=== PATIENT | male | born 1965 | race Caucasian/White ===

== ENCOUNTER 2021-03-10 13:59 | Emergency (ER) | payer OTHER, SELFPAY ==
[2021-03-10 14:22] VITALS: BP 185/104; PULSE 81; RESP 16; TEMP 36.6; O2SAT 98; BMI 29.5
[2021-03-10 15:28] LABS: Glucose Urine UA Norm (Normal); Ketones Urine Negative (Negative); Nitrate Urine Negative (Negative); Protein Urine Neg (Negative); Specific Gravity, Urine 1.005 (1.005-1.030); Urine Appearance Clear (CLEAR); Urine Color Yellow (Yellow); pH Urine 6.5 (5-7)
[2021-03-10 15:29] LABS: Add Urine Culture? No; Add Urine Microscopic? YES; Bilirubin Urine Neg (Negative); Blood Urine 2+ (Negative); Leukocyte Esterase Urine Negative (Negative); RBC Urine 0-4 /hpf (0-2); Urobilinogen Urine Norm (Negative)
--- NOTE | 2021-03-10 15:36 | ECG_ITS ---
[facility] Test Date: 2021-03-10 Pat Name: Hollis Turpin Department: Room: Gender: Male Surveillance Director: : 1965 Requested By: Mariela Love Order Number: [id number] Donna MD: Remington Puentes M.D. Measurements Intervals [place] Rate: 63 P: 38 IA: 205 QRS: 7 QRSD: 99 T: 21 QT: 410 QTc: 421 Interpretive Statements SINUS RHYTHM No previous ECG available for comparison Electronically Signed On 03-11-2021 0:31:58 CDT by Remington Puentes M.D. [id number]
--- NOTE | 2021-03-10 15:36 | CTR_ITS ---
PROCEDURE INFORMATION: Exam: CT Abdomen And Pelvis Without Contrast Exam date and time: 03/10/2021 3:36 PM Age: 56 years old Clinical indication: Abdominal pain; Localized; Right; Prior surgery; Surgery type: Hernia; Additional info: Midline lower abdominal pain 2-3 wks; Acute R pain today TECHNIQUE: Imaging protocol: Computed tomography of the abdomen and pelvis without contrast. Radiation optimization: All CT scans at this facility use at least one of these dose optimization techniques: automated exposure control; mA and/or kV adjustment per patient size (includes targeted exams where dose is matched to clinical indication); or iterative reconstruction. COMPARISON: CT Abdomen/Pelvis Renal [id number] 04/13/2019 8:05 AM COMPARISON MORE: CT Abdomen/Pelvis Renal [id number] 05/06/2014 10:24:22 AM RADIATION DOSE METRICS: Total DLP (mGy-cm): 1820.92 FINDINGS: Lungs: Circumscribed 10 mm subpleural left upper lobe pulmonary nodule on axial series 2, image 19. No change in the nodule since at least 2013. No further dedicated follow-up recommended. Mediastinal space: Mild hiatal hernia. Liver: Normal. No mass. Gallbladder and bile ducts: Normal. No calcified stones. No ductal dilation. Pancreas: Normal. No ductal dilation. Spleen: Normal. No splenomegaly. Adrenal glands: Normal. No mass. Kidneys and ureters: Mildly atrophic renal parenchyma. Clustered simple renal sinus cysts bilaterally. Right proximal collecting system moderate severity hydroureteronephrosis secondary to 5 mm calcified mid ureteral stone. Additional nonobstructing right kidney upper pole and lower pole stones. Stomach and bowel: Unremarkable. No obstruction. No mucosal thickening. Appendix: No evidence of appendicitis. Intraperitoneal space: Unremarkable. No free air. No significant fluid collection. Vasculature: Unremarkable. No abdominal aortic aneurysm. Lymph nodes: Unremarkable. No enlarged lymph nodes. Urinary bladder: Unremarkable as visualized. Reproductive: Very mild prostate gland enlargement. Bones/joints: Unremarkable. No acute fracture. Soft tissues: Fat containing left inguinal hernia. CT/CT kidney stone [id number] IMPRESSION: Right collecting system obstructive uropathy secondary to ureterolithiasis. COMMENTS: Consistent with the [employer]'s Incidental Findings Committee white paper (J Am Luan Radiol 2018): Any incidental renal lesion less than 1 cm or classified as too small to characterize, or any incidental cystic renal lesion characterized as simple-appearing, is likely benign. No follow-up imaging is recommended for these lesions per consensus recommendations based on imaging criteria. Radiation Dose CTDIVOL = (mGy): DLP = 1820.92 (mGy-cm)
--- NOTE | 2021-03-10 15:39 | ED_ITS ---
HPI - Abdominal Pain General: Chief Complaint: General Medical Stated Complaint: R flank pain, face tingling and numbness Time Seen by Provider: 03/10/21 15:05 Source: patient Mode of arrival: ambulatory Limitations: no limitations History of Present Illness: HPI narrative: Patient is a 56-year-old male who presents to ED today with a few different complaints. Patient tells me he has had pain to his lower midline abdomen for 2 to 3 weeks. He describes his pain as mild and usually does not bother him. He states a few hours ago he began noticing very acute onset right sided abdominal and lateral abdomen pain. He states he does have a history of kidney and ureter stones and states his pain felt very similar. He is not having any complaints of hematuria, difficulty sta rting a stream, or urinary hesitancy. He does not complain of nausea, vomiting, changes in bowel movements. No fevers. He states on the car ride to the emergency department he had an episode of numbness/tingling to the right side of his face and right arm. He noticed upon check-in that his blood pressure was elevated at 185/104. He states he does not routinely check his blood pressure but has been told previously he does have hypertension-this is untreated. Patient upon arrival states that the numbness and tingling has completely resolved. He does not/did not have any accompanying chest pains or SOB with episode. MD elicited complaint: abdominal pain Pertinent past history: other (previous R inguinal hernia repair; hx of kidney stones) Pain Consistency: constant Migration to: no migration Exacerbating factors: nothing Relieving factors: nothing Associated Symptoms: Reports no associated symptoms; Denies change in stool character, chills, diarrhea, dysuria, fever(s), hematuria, nausea, syncope and vomiting Review of Systems Const: Denies: fever(s), chills, body aches, fatigue or malaise Eyes: Denies: change in vision or blurry vision Card: Denies: chest pain, palpitations, irregular heart rhythm, edema, lightheadedness, syncope or pre-syncope Resp: Denies: dyspnea GI: Reports: abdominal pain; Denies: nausea, vomiting, diarrhea or change in stool character : Reports: flank pain; Denies: difficulty urinating, dysuria, urinary frequency, urinary urgency, urinary hesitancy, urinary dribbling, difficulty starting urination, change in urine stream, oliguria, urinary incontinence, hematuria or testicular pain Musc: Reports: back pain (R flank); Denies: neck pain, extremity pain, extremity swelling, joint pain or joint swelling Skin/Breast: Denies: rash Neuro: Reports: sensory changes (reports tingling to R arm/face that has resolved ); Denies: headache(s), weakness in extremities, lack of coordination, difficulty walking, dizziness, vertigo, confusion, Slurred speech present or difficulty communicating thoughts PFSH ED PFSH: Family History (Updated 10/06/20 @ 11:15 by Rhona Weems, RN) Mother Cancer Breast Father CAD (coronary artery disease) Social History (Updated 10/06/20 @ 11:15 by Rhona Weems RN) Smoking and tobacco status: never smoked Alcohol intake: never Marital status: Current occupational status: employed Physical Exam Const: COMMON NORMALS: no acute distress, average body habitus, patient oriented x3, no limitations, healthy appearing, alert and well nourished HENMT: COMMON NORMALS: normocephalic and atraumatic HEAD & SCALP: normocephalic and atraumatic Neck/C-Spine: COMMON NORMALS: full ROM, no lymphadenopathy, supple and no meningeal signs Chest: COMMONS NORMALS: normal inspection of the chest Resp: COMMON NORMALS: normal respiratory effort and clear to auscultation bilaterally AUSCULTATION: clear to auscultation bilaterally Cardio: COMMON NORMALS: regular rate and regular rhythm RATE: regular rate RHYTHM: regular rhythm GI: COMMON NORMALS: Normal to inspection, nondistended, normoactive bowel sounds present, Soft to palpation, No hepatosplenomegaly present and no masses INSPECTION: Yes normal to inspection PALPATION: Yes Soft to palpation, Yes Tenderness to palpation present (GI) (see below) and Yes No hepatosplenomegaly present OTHER: very mild midline lower abdominal pain-no masses/bulges; he does have what feels like a subcutaneous mass to L lower abdomen that he states he is aware of and calls it a fatty tumor ; he has mild pain to R flank wrapping around into lower abdomen : COMMON NORMALS: Yes no CVA tenderness BLADDER/KIDNEY EXAM: Yes no CVA tenderness Back/Pelvis: COMMON NORMALS: no CVA tenderness and thoracic and lumbar spine normal to inspection Extremity: COMMON NORMALS: normal to inspection, capillary refill normal and no calf tenderness Neuro: EZE COMA SCALE: document GCS findings Eze coma scale eye opening: Spontaneous Eze coma scale verbal response: Orientated Crucible coma scale motor response: Obey commands Eze coma scale total score: 15 COMMON NORMALS: patient oriented x3, CN's II-XII intact bilaterally, moves all extremities, no focal motor deficits, no sensory deficits noted and gait normal SENSORIUM/ORIENTATION: Yes alert MENINGEAL SIGNS: Yes no meningeal signs CRANIAL NERVES: Yes CN normal except as noted COORDINATION/BALANCE: [id number] test normal SPEECH: speech normal GAIT: Yes Normal gait present SENSORY EXAM: Yes other (normal sensory exam) MOTOR EXAM: 5/5 motor strength present throughout COORDINATION: [id number] test normal Skin: COMMON NORMALS: no rashes or lesions noted GENERAL SKIN EXAM: no rashes or lesions noted Course Vital Signs: Vital signs: Vital Signs Temperature 97.9 F 03/10/21 14:22 Pulse Rate 78 03/10/21 16:33 Respiratory Rate 18 03/10/21 16:33 Blood Pressure 151/84 03/10/21 16:33 Pulse Oximetry 98 03/10/21 16:33 MDM - Abdominal Pain MDM Narrative: Medical decision making narrative: Vitals are stable. Hypertension improved here w/o medications. Recommend BP log and followup with PCP for treatment options. He was found to have a 5mm R mid ureter stone. I have not had to give him anything for pain here. UA not infected. Remainder of labs are unremarkable. Will give pain/nausea meds and zofran as well as urine strainer and have him follow up with Dr. White. Return to ED precautions given. Lab Data: Labs: Lab Results 03/10/21 03/10/21 03/10/21 Range/Units 14:52 15:45 15:45 WBC 8.4 (4.0-10.0) 10^3/ uL RBC 4.70 (4.1-5.3) 10^6/u L Hgb 14.7 (11.7-16.6) g/dL Hct 42.4 (42.0-52.0) % MCV 90.2 (80-94) fL MCH 31.3 (28.0-34.0) pg MCHC 34.7 (30.0-36.0) g/dL RDW 12.3 (12.1-15.1) % Plt Count 173 (130-400) 10^3/c mm MPV 12.3 H (7.4-10.4) fL Neut % (Auto) 80.8 % Lymph % (Auto) 7.7 % [place] % (Auto) 10.7 % Eos % (Auto) 0.2 % Baso % (Auto) 0.4 % Neut # (Auto) 6.82 (1.8-7.7) 10^3/u L Lymph # (Auto) 0.7 L (0.8-4.8) 10^3/u L [place] # (Auto) 0.9 (0.2-0.9) 10^3/u L Eos # (Auto) 0.0 (0.0-0.8) 10^3/u L Baso # (Auto) 0.0 (0.0-0.1) 10^3/u L Nucleated RBC % (a uto) 0 % Nucleated RBCs # 0.0 /100WBC Sodium 141 (136-145) mmol/L Potassium 4.0 (3.5-5.1) mmol/L Chloride 106 (98-107) mmol/L Carbon Dioxide 25 (22-29) mmol/L Anion Gap 14.0 (5-19) BUN 16 (6-20) mg/dL Creatinine 1.0 (0.7-1.2) mg/dL GFR Calculation 77.3 L (90-130) mL/min Glucose 97 (65-115) mg/dL Calculated Osmolal ity 293 (285-295) mOsm/k g Calcium 8.7 (8.5-10.5) mg/dL Total Bilirubin 0.3 (0.15-1.2) mg/dL AST 21 (0-40) U/L ALT 19 (0-41) U/L Alkaline Phosphata se 84 (40-130) IU/L Troponin T Baselin e (0-15) ng/L Total Protein 6.6 (6.6-8.7) g/dL Albumin 4.4 (3.5-5.2) g/dL Globulin 2.2 (1.3-4.6) g/dL Urine Color Yellow (Yellow) Urine Appearance Clear (CLEAR) Urine pH 6.5 (5-7) Ur Specific Gravit y 1.005 (1.005-1.030) Urine Protein Neg (Negative) Urine Glucose (UA) Norm (Normal) Urine Ketones Negative (Negative) Urine Blood 2+ H (Negative) Urine Nitrate Negative (Negative) Urine Bilirubin Neg (Negative) Urine Urobilinogen Norm (Negative) mg/dL Ur Leukocyte Rose Marie ase Negative (Negative) Urine RBC 0-4 H (0-2) /hpf Urine WBC None (0-5) /hpf Ur Squamous Epith Cells None (0-5) /hpf Amorphous Sediment Not Reportable Urine Bacteria None (NONE) /hpf 03/10/21 Range/Units 15:45 WBC (4.0-10.0) 10^3/ uL RBC (4.1-5.3) 10^6/u L Hgb (11.7-16.6) g/dL Hct (42.0-52.0) % MCV (80-94) fL MCH (28.0-34.0) pg MCHC (30.0-36.0) g/dL RDW (12.1-15.1) % Plt Count (130-400) 10^3/c mm MPV (7.4-10.4) fL Neut % (Auto) % Lymph % (Auto) % [place] % (Auto) % Eos % (Auto) % Baso % (Auto) % Neut # (Auto) (1.8-7.7) 10^3/u L Lymph # (Auto) (0.8-4.8) 10^3/u L [place] # (Auto) (0.2-0.9) 10^3/u L Eos # (Auto) (0.0-0.8) 10^3/u L Baso # (Auto) (0.0-0.1) 10^3/u L Nucleated RBC % (a uto) % Nucleated RBCs # /100WBC Sodium (136-145) mmol/L Potassium (3.5-5.1) mmol/L Chloride (98-107) mmol/L Carbon Dioxide (22-29) mmol/L Anion Gap (5-19) BUN (6-20) mg/dL Creatinine (0.7-1.2) mg/dL GFR Calculation (90-130) mL/min Glucose (65-115) mg/dL Calculated Osmolal ity (285-295) mOsm/k g Calcium (8.5-10.5) mg/dL Total Bilirubin (0.15-1.2) mg/dL AST (0-40) U/L ALT (0-41) U/L Alkaline Phosphata se (40-130) IU/L Troponin T Baselin e 8 (0-15) ng/L Total Protein (6.6-8.7) g/dL Albumin (3.5-5.2) g/dL Globulin (1.3-4.6) g/dL Urine Color (Yellow) Urine Appearance (CLEAR) Urine pH (5-7) Ur Specific Gravit y (1.005-1.030) Urine Protein (Negative) Urine Glucose (UA) (Normal) Urine Ketones (Negative) Urine Blood (Negative) Urine Nitrate (Negative) Urine Bilirubin (Negative) Urine Urobilinogen (Negative) mg/dL Ur Leukocyte Rose Marie ase (Negative) Urine RBC (0-2) /hpf Urine WBC (0-5) /hpf Ur Squamous Epith Cells (0-5) /hpf Amorphous Sediment Urine Bacteria (NONE) /hpf Imaging Data ^: CT renal: Radiologist's impression: [address] [address] [address] Scan Report Signed Patient: Hollis Turpin Unit #: [id number] : 1965 Age/Sex: 56 / M ADM Date: 03/10/21 Loc: ER Room/Bed: Attending Dr: Ordering Provider/Ordering MD: Mariela Love Date of Service: 03/10/21 Procedure(s): CT kidney stone [id number] Accession Number(s): [id number] Report Number: [id number] PROCEDURE INFORMATION: Exam: CT Abdomen And Pelvis Without Contrast Exam date and time: 03/10/2021 3:36 PM Age: 56 years old Clinical indication: Abdominal pain; Localized; Right; Prior surgery; Surgery type: Hernia; Additional info: Midline lower abdominal pain 2-3 wks; Acute R pain today TECHNIQUE: Imaging protocol: Computed tomography of the abdomen and pelvis without contrast. Radiation optimization: All CT scans at this facility use at least one of these dose optimization techniques: automated exposure control; mA and/or kV adjustment per patient size (includes targeted exams where dose is matched to clinical indication); or iterative reconstruction. COMPARISON: CT Abdomen/Pelvis Renal [id number] 04/13/2019 8:05 AM COMPARISON MORE: CT Abdomen/Pelvis Renal [id number] 05/06/2014 10:24:22 AM RADIATION DOSE METRICS: Total DLP (mGy-cm): 1820.92 FINDINGS: Lungs: Circumscribed 10 mm subpleural left upper lobe pulmonary nodule on axial series 2, image 19. No change in the nodule since at least 2013. No further dedicated follow-up recommended. Mediastinal space: Mild hiatal hernia. Liver: Normal. No mass. Gallbladder and bile ducts: Normal. No calcified stones. No ductal dilation. Pancreas: Normal. No ductal dilation. Spleen: Normal. No splenomegaly. Adrenal glands: Normal. No mass. Kidneys and ureters: Mildly atrophic renal parenchyma. Clustered simple renal sinus cysts bilaterally. Right proximal collecting system moderate severity hydroureteronephrosis secondary to 5 mm calcified mid ureteral stone. Additional nonobstructing right kidney upper pole and lower pole stones. Stomach and bowel: Unremarkable. No obstruction. No mucosal thickening. Appendix: No evidence of appendicitis. Intraperitoneal space: Unremarkable. No free air. No significant fluid collection. Vasculature: Unremarkable. No abdominal aortic aneurysm. Lymph nodes: Unremarkable. No enlarged lymph nodes. Urinary bladder: Unremarkable as visualized. Reproductive: Very mild prostate gland enlargement. Bones/joints: Unremarkable. No acute fracture. Soft tissues: Fat containing left inguinal hernia. CT/CT kidney stone [id number] IMPRESSION: Right collecting system obstructive uropathy secondary to ureterolithiasis. COMMENTS: Consistent with the [employer]'s Incidental Findings Committee white paper (J Am Luan Radiol 2018): Any incidental renal lesion less than 1 cm or classified as too small to characterize, or any incidental cystic renal lesion characterized as simple-appearing, is likely benign. No follow-up imaging is recommended for these lesions per consensus recommendations based on imaging criteria. Radiation Dose CTDIVOL = (mGy): DLP = 1820.92 (mGy-cm) Dictated By: Sebas Kline Signed By: Sebas Kline Signed Date/Time: 03/10/211652 DD/ 51 EKG Data ^: EKG 1: EKG interpretation date: 03/10/21 EKG interpretation time: 16:02 Interpretation: Sinus rhythm Rate [address] elevation or depression changes noted Discharge Plan Discharge Patient Disposition: Home Clinical Impression: Calculus of right ureter Condition: Stable Prescriptions: New hydrocodone-acetaminophen 5-325 mg tablet 1 tab PO Q6H PRN (Reason: pain) Qty: 20 RF: 0 Zofran 4 mg tablet 4 mg PO Q6H PRN (Reason: nausea and vomiting) Qty: 14 RF: 0 Flomax 0.4 mg capsule 0.4 mg PO DAILY Qty: 10 RF: 0 Discharge Orders: Discharge ED (Routine); Ordered 03/10/21 Ordered By: Mariela Love Referrals: Femi White MD [Primary Care Provider] - Activity Restrictions/Additional Instructions: As we discussed you need to strain your urine. Save stone if you pass it. Please follow-up with Dr. White. Case management should contact you shortly to set you up with this appointment. You need to return to the emergency department for worsening or uncontrollable pain, repetitive episodes of vomiting, inability to urinate, fevers, or any other concerns you may have. As we discussed please keep a blood pressure log over the next 1 to 2 weeks and follow-up with primary care if it continually is elevated. Coding Level of Care Code ED Window Display Designer for Marcellus Fwd Exam Comprehensive
[2021-03-10 15:54] VITALS: BP 151/88; PULSE 78; RESP 18; O2SAT 98
[2021-03-10 15:54] LABS: Basophils % 0.4 %; Eosinophils % 0.2 %; Hematocrit 42.4 % (42.0-52.0); Hemoglobin 14.7 g/dL (11.7-16.6); Lymphocytes # 0.7 10^3/uL (0.8-4.8); Lymphocytes % 7.7 %; Mean Corpuscular HGB Conc 34.7 g/dL (30.0-36.0); Mean Corpuscular Hemoglobin 31.3 pg (28.0-34.0); Mean Corpuscular Volume 90.2 fL (80-94); Mean Platelet Volume 12.3 fL (7.4-10.4); Monocytes # 0.9 10^3/uL (0.2-0.9); Monocytes % 10.7 %; Neutrophils # 6.82 10^3/uL (1.8-7.7); Neutrophils % 80.8 %; Nucleated Red Blood Cells % 0 %; Platelet Count 173 10^3/cmm (130-400); Red Cell Distribution Width 12.3 % (12.1-15.1); White Blood Count 8.4 10^3/uL (4.0-10.0)
[2021-03-10] MEDS: sodium chloride 0.9% 1,000 ML 999 ML IV (15:55)
[2021-03-10 16:15] LABS: Alanine Aminotransferase 19 U/L (0-41); Albumin Level 4.4 g/dL (3.5-5.2); Alkaline Phosphatase 84 IU/L (40-130); Aspartate Amino Transferase 21 U/L (0-40); Blood Urea Nitrogen 16 mg/dL (6-20); Calcium 8.7 mg/dL (8.5-10.5); Carbon Dioxide 25 mmol/L (22-29); Chloride 106 mmol/L (98-107); Globulin 2.2 g/dL (1.3-4.6); Glomerular Filtration Rate 77.3 mL/min (90-130); Glucose 97 mg/dL (65-115); Osmolality Calculated 293 mOsm/kg (285-295); Sodium 141 mmol/L (136-145); Total Bilirubin 0.3 mg/dL (0.15-1.2); Total Protein 6.6 g/dL (6.6-8.7)
[2021-03-10 16:16] LABS: Troponin(5th) Baseline 8 ng/L (0-15)
[2021-03-10 16:33] VITALS: BP 151/84; PULSE 78; RESP 18; O2SAT 98
--- NOTE | 2021-03-11 10:52 | DCPLANNER ---
manager forms had message to schedule a follow up appointment for patient with Dr. White for ureter stone. manager forms called the office of Dr. White, spoke with Dalila, gave clinic patients information. manager forms was told that patients information would be printed and reviewed. Clinic will call patient with appointment information.
--- NOTE | 2021-03-13 14:48 | DCPLANNER ---
Patient had a follow up appointment with Dr. Duarte office, - appointment was cancelled.
== END 2021-03-10 17:25 | disposition home or self-care (01) ==
PROVIDERS: Emergency Provider Physician Assistant; PCP Urology
DX: N20.1 Calculus of ureter (principal); I10 Essential (primary) hypertension
CPT/HCPCS: 74176; 80053; 81001; 84484; 85025; 93005; 96360; 99284; J7030

== ENCOUNTER 2021-03-17 05:38 | Emergency (ER) | payer OTHER, SELFPAY ==
[2021-03-17 06:01] VITALS: BP 172/112; PULSE 71; RESP 20; TEMP 36.8; O2SAT 98; BMI 29.5
--- NOTE | 2021-03-17 06:11 | XRR_ITS ---
PROCEDURE INFORMATION: Exam: XR Abdomen Exam date and time: 03/17/2021 6:11 AM Age: 56 years old Clinical indication: Abdominal pain; Additional info: Renal stone TECHNIQUE: Imaging protocol: XR of the abdomen. Views: Frontal supine view of the abdomen. 1 View. COMPARISON: CT kidney stone [id number] 03/10/2021 3:52 PM FINDINGS: Gastrointestinal tract: bowel gas pattern is nonspecific. Air filled large bowel including distal rectal gas. Scattered loops of air filled small bowel none of which are dilated. Large amount of stool throughout the large bowel. Organs: 3 mm calculus overlies the midpole versus lower pole of the right kidney. Bones/joints: Unremarkable. XR/XR KUB [id number] IMPRESSION: 1. Bowel gas pattern is nonspecific. Air filled large bowel including distal rectal gas. Scattered loops of air filled small bowel none of which are dilated. 2. Large amount of stool throughout the large bowel.
[2021-03-17 06:18] VITALS: RESP 18
[2021-03-17] MEDS: morphine 4 mg/mL SDV 1 mL 8 MG IVP (06:18)
[2021-03-17] MEDS: ondansetron 2 mg/ML SDV 2 mL 4 MG IVP (06:19)
[2021-03-17 06:22] LABS: Basophils % 0.3 %; Eosinophils % 0.2 %; Hematocrit 41.6 % (42.0-52.0); Hemoglobin 14.3 g/dL (11.7-16.6); Lymphocytes # 0.6 10^3/uL (0.8-4.8); Lymphocytes % 9.5 %; Mean Corpuscular HGB Conc 34.4 g/dL (30.0-36.0); Mean Corpuscular Hemoglobin 30.7 pg (28.0-34.0); Mean Corpuscular Volume 89.3 fL (80-94); Mean Platelet Volume 12.2 fL (7.4-10.4); Monocytes # 0.6 10^3/uL (0.2-0.9); Monocytes % 9.2 %; Neutrophils # 5.07 10^3/uL (1.8-7.7); Neutrophils % 80.6 %; Nucleated Red Blood Cells % 0 %; Platelet Count 183 10^3/cmm (130-400); Red Blood Count 4.66 10^6/uL (4.1-5.3); Red Cell Distribution Width 12.2 % (12.1-15.1); White Blood Count 6.3 10^3/uL (4.0-10.0)
--- NOTE | 2021-03-17 06:22 | ED_ITS ---
HPI - Abdominal Pain General: Chief Complaint: Abdominal Pain Stated Complaint: kidney stone Time Seen by Provider: 03/17/21 05:57 History of Present Illness: HPI narrative: 56-year-old male presents emergency room with complaints of right flank pain is worsening. He has a known right renal ureteral stone with about and CT 1 wk ago. He seems to be doing well with medications he was sent home on for pain and tamsulosin last night he mowed his lawn and this morning the pain is become uncontrollable. He has had multiple kidney stones in the past as well. MD elicited complaint: abdominal pain and flank pain Pertinent past history: kidney stones Onset (ago): week(s) Pain Consistency: constant Location: R flank Severity: severe Quality: stabbing Radiation: suprapubic Exacerbating factors: nothing Relieving factors: nothing Associated Symptoms: Reports dysuria, hematuria, nausea, poor appetite and vomiting; Denies anorexia, belching, bloating, change in bowel habits, change in stool character, chills, coffee ground emesis, constipation, GI cramping, diarrhea, dyspepsia, excessive flatus, fever(s), heartburn, hematochezia, hematemesis, fecal incontinence, loose stools, melena and syncope Treatments prior to arrival: prescription analgesics Review of Systems Const: Denies: fever(s) or chills ENMT: Denies: throat pain, ear or mastoid pain, nasal discharge or nasal congestion Card: Denies: syncope Resp: Denies: dyspnea, productive cough or non-productive cough GI: Reports: nausea and vomiting; Denies: hematemesis, coffee ground emesis, heartburn, diarrhea, constipation, bloating, GI cramping, belching, excessive flatus, fecal incontinence, change in bowel habits, change in stool character, hematochezia or melena : Reports: dysuria and hematuria Skin/Breast: Denies: rash or pruritus PFSH ED PFSH: Family History Mother Cancer Breast Father CAD (coronary artery disease) Social History Smoking and tobacco status: never smoked Alcohol intake: never Marital status: Current occupational status: employed Physical Exam Const: COMMON NORMALS: no acute distress GENERAL APPEARANCE: cooperative and comfortable ORIENTATION/CONSCIOUSNESS: Yes awake, Yes oriented to person, Yes oriented to place and Yes oriented to time HENMT: COMMON NORMALS: normocephalic, atraumatic and hearing grossly normal bilaterally HEAD & SCALP: normocephalic and atraumatic Neck/C-Spine: COMMON NORMALS: no JVD Resp: COMMON NORMALS: normal respiratory effort, No retractions, No use of accessory muscles and clear to auscultation bilaterally AUSCULTATION: clear to auscultation bilaterally Cardio: COMMON NORMALS: no JVD, regular rate, regular rhythm and No murmurs present (Cardio) RATE: regular rate RHYTHM: regular rhythm GI: COMMON NORMALS: Soft to palpation and No hepatosplenomegaly present AUSCULTATION: Yes normoactive bowel sounds PALPATION: Yes Soft to palpation, No Tenderness to palpation present (GI), No Guarding due to palpation present (GI) and Yes No hepatosplenomegaly present Extremity: COMMON NORMALS: normal to inspection, capillary refill normal, no clubbing, cyanosis or edema, no calf tenderness and no pedal edema Neuro: SENSORIUM/ORIENTATION: Yes oriented to person, Yes oriented to place and Yes oriented to time Skin: COMMON NORMALS: no rashes or lesions noted GENERAL SKIN EXAM: no rashes or lesions noted Course Vital Signs: Vital signs: Vital Signs Temperature 98.2 F 03/17/21 06:01 Pulse Rate 70 03/17/21 06:40 Respiratory Rate 18 03/17/21 06:45 Blood Pressure 168/134 03/17/21 06:40 Pulse Oximetry 96 03/17/21 06:40 MDM - Abdominal Pain MDM Narrative: Medical decision making narrative: Pain control improved. On the KUB can see the stone just outside the bladder it appears to be at the UVJ. We will discharge him home change him to Percocet 7.5/325 and Phenergan. He was not be having his pain or his nausea and vomiting adequately controlled with the previous medications. In addition to that his blood pressure is quite high. So it surely his pain however the blood pressure did not improve after we get his pain under control. His daughter is a nurse and has been monitoring at home and and reported blood pressures in the 140s over 100 range. Probably does need better blood pressure control. We will start him off on amlodipine 2.5 mg daily. This should be checked up with a primary care doctor in outpatient basis. Likely will need to be adjusted. Lab Data: Labs: Lab Results 03/17/21 03/17/21 Range/Units 06:10 06:10 WBC 6.3 (4.0-10.0) 10^3/ uL RBC 4.66 (4.1-5.3) 10^6/u L Hgb 14.3 (11.7-16.6) g/dL Hct 41.6 L (42.0-52.0) % MCV 89.3 (80-94) fL MCH 30.7 (28.0-34.0) pg MCHC 34.4 (30.0-36.0) g/dL RDW 12.2 (12.1-15.1) % Plt Count 183 (130-400) 10^3/c mm MPV 12.2 H (7.4-10.4) fL Neut % (Auto) 80.6 % Lymph % (Auto) 9.5 % [place] % (Auto) 9.2 % Eos % (Auto) 0.2 % Baso % (Auto) 0.3 % Neut # (Auto) 5.07 (1.8-7.7) 10^3/u L Lymph # (Auto) 0.6 L (0.8-4.8) 10^3/u L [place] # (Auto) 0.6 (0.2-0.9) 10^3/u L Eos # (Auto) 0.0 (0.0-0.8) 10^3/u L Baso # (Auto) 0.0 (0.0-0.1) 10^3/u L Nucleated RBC % (a uto) 0 % Nucleated RBCs # 0.0 /100WBC Sodium 142 (136-145) mmol/L Potassium 4.1 (3.5-5.1) mmol/L Chloride 108 H (98-107) mmol/L Carbon Dioxide 23 (22-29) mmol/L Anion Gap 15.1 (5-19) BUN 18 (6-20) mg/dL Creatinine 1.1 (0.7-1.2) mg/dL GFR Calculation 69.2 L (90-130) mL/min Glucose 113 (65-115) mg/dL Calculated Osmolal ity 297 H (285-295) mOsm/k g Calcium 8.8 (8.5-10.5) mg/dL Discharge Plan Discharge Patient Disposition: Home Clinical Impression: Calculus of right ureter, Benign essential HTN Condition: Stable Prescriptions: New Percocet 7.5-325 mg tablet 1 tab PO Q6H PRN (Reason: pain) Qty: 20 RF: 0 promethazine 25 mg tablet 25 mg PO Q6H PRN (Reason: nausea and vomiting) Qty: 20 RF: 0 amlodipine 5 mg tablet 2.5 mg PO DAILY Qty: 30 RF: 0 Discontinued hydrocodone-acetaminophen 5-325 mg tablet 1 tab PO Q6H PRN (Reason: pain) Qty: 20 RF: 0 ondansetron HCl [Zofran] 4 mg tablet 4 mg PO Q6H PRN (Reason: nausea and vomiting) Qty: 14 RF: 0 No Action Flomax 0.4 mg capsule 0.4 mg PO DAILY Qty: 10 RF: 0 Discharge Orders: Discharge ED (Routine); Ordered 03/17/21 Ordered By: Will Wharton Referrals: Femi White MD [Primary Care Provider] - Discharge Diet: Usual diet Discharge Activity: Increase activity as tolerated Patient Instructions: Opioid Safety Activity Restrictions/Additional Instructions: Follow-up with Dr. White. Coding Level of Care Code ED Load Out Worker for Radhag Fwd Exam Comprehensive
--- NOTE | 2021-03-17 06:35 | PC.NURSE ---
REports pain and nausea is getting better now. Appears less uncomfortable. at bedside. Repositioned for comfort. VSS.
[2021-03-17 06:40] VITALS: BP 168/134; PULSE 70; RESP 18; O2SAT 96
[2021-03-17 06:42] LABS: Anion Gap 15.1 (5-19); Blood Urea Nitrogen 18 mg/dL (6-20); Calcium 8.8 mg/dL (8.5-10.5); Carbon Dioxide 23 mmol/L (22-29); Chloride 108 mmol/L (98-107); Glomerular Filtration Rate 69.2 mL/min (90-130); Glucose 113 mg/dL (65-115); Osmolality Calculated 297 mOsm/kg (285-295); Potassium 4.1 mmol/L (3.5-5.1); Sodium 142 mmol/L (136-145)
[2021-03-17 06:45] VITALS: RESP 18
[2021-03-17] MEDS: HYDROmorphone 1 mg/mL INJ 1 mL 0.5 MG IVP (06:45)
[2021-03-17 07:21] VITALS: BP 168/134; PULSE 78; O2SAT 99
== END 2021-03-17 07:23 | disposition home or self-care (01) ==
PROVIDERS: Emergency Provider Family Medicine; PCP Urology
DX: N20.1 Calculus of ureter (principal); I10 Essential (primary) hypertension
CPT/HCPCS: 74018; 80048; 85025; 96374; 96375; 99283; J1170; J2270; J2405

== ENCOUNTER 2021-03-17 06:00 | Outpatient (CLI) | payer SELFPAY | END 2021-03-17 06:01 | disposition home or self-care (01) | LOC: RAD 01-07 14:52 | PROVIDERS: Visit Provider Urology | DX: N40.1 Benign prostatic hyperplasia with lower urinary tract symptoms (principal) | CPT/HCPCS: 81003 ==

== ENCOUNTER 2021-03-24 07:46 | Outpatient (CLI) | payer SELFPAY ==
--- NOTE | 2021-03-24 08:00 | XR_ITS ---
WS: [id number] XR KUB [id number] REASON FOR EXAM: CALCULUS OF URETER FINDINGS: Calculus is seen overlying the midportion of the right kidney. This was demonstrated on the previous CT scan and KUB. On today's examination one can readily identify the right ureteral calculus at the L4 level. No urinary tract calculi are seen in the pelvis. XR/XR KUB [id number] IMPRESSION: Urinary tract calculi as above.
== END 2021-03-24 07:47 | disposition home or self-care (01) ==
LOC: RAD 07:49
PROVIDERS: PCP Urology; Visit Provider Urology
DX: N20.1 Calculus of ureter (principal); N40.1 Benign prostatic hyperplasia with lower urinary tract symptoms
CPT/HCPCS: 74018; 81003

== ENCOUNTER 2021-05-06 07:08 | Outpatient (CLI) | payer SELFPAY ==
--- NOTE | 2021-05-06 07:18 | XR_ITS ---
WS: [id number] KUB, AP view, 05/06/2021 Clinical Data: URETERAL STONE Comparison: KUB, 03/24/2021. Findings: No abnormal intraabdominal masses or calcifications are seen. There is no dilatated small bowel or ev idence of obstruction. There is a phlebolith in the right true pelvis. Bowel gas obscures detail over the right kidney. XR/XR KUB [id number] Impression: Negative KUB.
== END 2021-05-06 07:09 | disposition home or self-care (01) ==
PROVIDERS: Visit Provider Urology
DX: N20.1 Calculus of ureter (principal)
CPT/HCPCS: 74018

== ENCOUNTER 2021-05-07 06:00 | Outpatient (CLI) | payer SELFPAY | END 2021-05-07 06:01 | disposition home or self-care (01) | LOC: LAB 01-14 11:04 | PROVIDERS: Visit Provider Urology | DX: N20.1 Calculus of ureter (principal) | CPT/HCPCS: 81003 ==

== ENCOUNTER 2021-05-27 07:09 | Outpatient (CLI) | payer SELFPAY ==
--- NOTE | 2021-05-27 07:00 | XR_ITS ---
WS: [id number] Exam: XR KUB [id number] Date/Time of Exam: 05/27/2021 7:28 AM Reason For Exam: URETERAL STONE No bowel obstruction or free air. No sign of organ enlargement. Moderate amount stool in the colon. 2 mm opacity superimposes the left kidney. Regional bony structures are intact. Nonspecific pelvic zaida cifications noted. XR/XR KUB [id number] IMPRESSION: 1. No acute abdominal process. 2. 2 mm opaque density superimposing the left kidney. This is nonspecific. This may represent a small renal calculus or could be within the GI tract.
== END 2021-05-27 07:10 | disposition home or self-care (01) ==
LOC: RAD 07:13
PROVIDERS: Visit Provider Urology
DX: N20.1 Calculus of ureter (principal); N40.1 Benign prostatic hyperplasia with lower urinary tract symptoms
CPT/HCPCS: 74018; 81003

== ENCOUNTER 2021-06-05 09:59 | Outpatient (CLI) | payer SELFPAY ==
--- NOTE | 2021-06-05 10:00 | XR_ITS ---
WS: [id number] XR KUB [id number] REASON FOR EXAM: URETERAL CALCULUS FINDINGS: Previous CT scan 03/10/2021 demonstrated to moderate sized intrarenal calculi on the right. Obstructiv e uropathy due to mid right ureteral stone. KUB on 03/24/2021 demonstrated 2 calculi in the mid right ureter. One identifiable calculus in the rig ht kidney. Of importance a single right pelvic calcification, phlebolith. On KUB of 05/06 and 05/27/2021 progressive migration of 3 calculi into the distal right ureter. On the current examination no definite intrarenal calculi are identified. No definite calculi along t he abdominal course of the ureters. Within the right pelvis there are now 4 calculi. 3 of these represent distally migrated calculi from the right kidney and ureter. XR/XR KUB [id number] IMPRESSION: Progressive distal migration of 3 calculi through the distal right ureter to li e just proximal to the ureteral vesicle junction on the current examination.
== END 2021-06-05 10:00 | disposition home or self-care (01) ==
LOC: RAD 10:02
PROVIDERS: Visit Provider Urology
DX: N20.1 Calculus of ureter (principal)
CPT/HCPCS: 74018; 81003

== ENCOUNTER 2021-06-22 07:07 | Outpatient (CLI) | payer SELFPAY ==
--- NOTE | 2021-06-22 07:00 | XR_ITS ---
WS: [id number] Exam: XR KUB [id number] Date/Time of Exam: 06/22/2021 7:11 AM Reason For Exam: ureteral calculus Comparison 06/05/2021. No bowel obstruction or free air. Visualized organ margins are intact. 3 mm ovoid calcification noted in the lower right pelvic region has migrated slightly inferior and medial when compared to the prio r study. This could be a stone near the UV junction or in the bladder. Regional bony elements are int act. XR/XR KUB [id number] IMPRESSION: 1. A 3 mm ovoid calcification in the lower right pelvis that may represent a a urinary tract stone near the UV J or within the bladder. There are 3 additional rounded right pelvic calcifications that may be phleboliths.
== END 2021-06-22 07:08 | disposition home or self-care (01) ==
LOC: RAD 07:09
PROVIDERS: Visit Provider Urology
DX: N20.1 Calculus of ureter (principal)
CPT/HCPCS: 74018; 81003

== ENCOUNTER 2021-07-13 07:57 | Outpatient (CLI) | payer SELFPAY ==
--- NOTE | 2021-07-13 08:00 | XR_ITS ---
WS: [id number] Exam: XR KUB [id number] Date/Time of Exam: 07/13/2021 8:05 AM Reason For Exam: ureteral calculus Comparison 06/22/2021. No bowel obstruction or free air. No calcifications seen in the region of the kidneys. No sign of org an enlargement. Regional bony structures appear to be intact. Small right pelvic calcification noted that may be phleboliths. XR/XR KUB [id number] IMPRESSION: 1. No acute abdominal process. No calcifications seen in the region of the kidn eys.
== END 2021-07-13 07:58 | disposition home or self-care (01) ==
LOC: RAD 07:59
PROVIDERS: Visit Provider Urology
DX: N20.1 Calculus of ureter (principal)
CPT/HCPCS: 74018; 81003; 82365; 88300

== ENCOUNTER 2022-06-08 13:01 | Emergency (ER) | payer OTHER, SELFPAY ==
[2022-06-08 14:06] VITALS: BP 152/93; PULSE 90; RESP 22; TEMP 36.8; O2SAT 98; BMI 30.2
[2022-06-08 14:16] VITALS: RESP 18
[2022-06-08] MEDS: morphine 4 mg/mL SDV 1 mL 6 MG IVP ×2 (14:16→17:01)
[2022-06-08] MEDS: ondansetron 2 mg/ML SDV 2 mL 4 MG IVP (14:16)
[2022-06-08 14:34] LABS: Basophils % 0.2 %; Eosinophils % 0.1 %; Hematocrit 42.6 % (42.0-52.0); Hemoglobin 14.8 g/dL (11.7-16.6); Lymphocytes # 0.6 10^3/uL (0.8-4.8); Lymphocytes % 6.5 %; Mean Corpuscular HGB Conc 34.7 g/dL (30.0-36.0); Mean Corpuscular Hemoglobin 32.1 pg (28.0-34.0); Mean Corpuscular Volume 92.4 fl (80-94); Mean Platelet Volume 11.9 fL (7.4-10.4); Monocytes # 0.6 10^3/uL (0.2-0.9); Monocytes % 6.7 %; Neutrophils # 7.46 10^3/uL (1.8-7.7); Nucleated Red Blood Cells % 0 %; Platelet Count 154 10^3/cmm (130-400); Red Blood Count 4.61 10^6/uL (4.1-5.3); Red Cell Distribution Width 12.3 % (12.1-15.1); White Blood Count 8.7 10^3/uL (4.0-10.0)
[2022-06-08 14:47] LABS: Blood Urea Nitrogen 18 mg/dL (6-20); Calcium 9.4 mg/dL (8.5-10.5); Carbon Dioxide 20 mmol/L (22-29); Chloride 104 mmol/L (98-107); Glucose 115 mg/dL (65-115); Osmolality Calculated 293 mOsm/kg (285-295); Sodium 140 mmol/L (136-145)
[2022-06-08 14:55] LABS: Anion Gap 19.6 (5-19); Potassium 3.6 mmol/L (3.5-5.1)
--- NOTE | 2022-06-08 15:16 | W.ED.ABDPA2 ---
HPI - Abdominal Pain General: Chief Complaint: Abdominal Pain Stated Complaint: Possible kidney stone Time Seen by Provider: 06/08/22 13:57 Source: patient Mode of arrival: ambulatory History of Present Illness: 57-year-old male who presents to the emergency room with complaints of right flank pain. Patient is complaining of a severe pain that began yesterday has taken some previously prescribed medications. Pain no gross hematuria. Has a history of multiple renal stones in the past. States this feels similar. MD elicited complaint: abdominal pain Pertinent past history: kidney stones Onset (ago): day(s) Pain Consistency: constant Location: L flank Severity: severe Quality: sharp Exacerbating factors: nothing Relieving factors: nothing Associated Symptoms: Reports dysuria; Denies anorexia, belching, bloating, change in bowel habits, change in stool character, chills, coffee ground emesis, constipation, GI cramping, diarrhea, dyspepsia, excessive flatus, fever(s), heartburn, hematochezia, hematuria, hematemesis, fecal incontinence, loose stools, melena, nausea, poor appetite, syncope and vomiting Review of Systems Const: Denies: fever(s), chills, fatigue or malaise ENMT: Denies: throat pain, ear or mastoid pain, nasal discharge or nasal congestion Card: Denies: chest pain, palpitations, irregular heart rhythm, edema or syncope Resp: Denies: dyspnea, productive cough or non-productive cough GI: Reports: abdominal pain; Denies: nausea, vomiting, hematemesis, coffee ground emesis, heartburn, diarrhea, constipation, bloating, GI cramping, belching, excessive flatus, fecal incontinence, change in bowel habits, change in stool character, hematochezia or melena : Reports: flank pain, difficulty urinating and dysuria; Denies: urinary frequency, urinary urgency or hematuria Skin/Breast: Denies: rash or pruritus PFSH ED PFSH: Medical History BPH loc w urin obs/LUTS Left ureteral stone Family History Mother Cancer Breast Father CAD (coronary artery disease) Social History (Reviewed 06/10/22 @ 06:26 by VARSHA Prado Alcohol intake: never Marital status: Current occupational status: employed History of recent travel: No Physical Exam Const: GENERAL APPEARANCE: cooperative and comfortable ORIENTATION/CONSCIOUSNESS: Yes awake, Yes oriented to person, Yes oriented to place and Yes oriented to time HENMT: COMMON NORMALS: normocephalic, atraumatic and hearing grossly normal bilaterally HEAD & SCALP: normocephalic and atraumatic Resp: COMMON NORMALS: normal respiratory effort, No retractions, No use of accessory muscles and clear to auscultation bilaterally AUSCULTATION: clear to auscultation bilaterally Cardio: COMMON NORMALS: regular rate, regular rhythm and No murmurs present (Cardio) RATE: regular rate RHYTHM: regular rhythm GI: COMMON NORMALS: Soft to palpation and No hepatosplenomegaly present AUSCULTATION: Yes normoactive bowel sounds PALPATION: Yes Soft to palpation, No Tenderness to palpation present (GI), No Guarding due to palpation present (GI) and Yes No hepatosplenomegaly present : BLADDER/KIDNEY EXAM: Yes CVA tenderness Back/Pelvis: GENERAL BACK: Yes CVA tenderness CVA tenderness: left Extremity: COMMON NORMALS: normal to inspection, capillary refill normal, no clubbing, cyanosis or edema, no calf tenderness and no pedal edema Neuro: SENSORIUM/ORIENTATION: Yes oriented to person, Yes oriented to place and Yes oriented to time Skin: COMMON NORMALS: no rashes or lesions noted GENERAL SKIN EXAM: no rashes or lesions noted Course Vital Signs: Vital signs: Vital Signs Temperature 98.2 F 06/08/22 14:06 Pulse Rate 71 06/08/22 17:36 Respiratory Rate 17 06/08/22 17:36 Blood Pressure 128/82 06/08/22 17:36 Pulse Oximetry 98 06/08/22 17:36 Oxygen Delivery Me thod 06/08/22 15:44 MDM - Abdominal Pain Medical Decision Making 2 mm proximal ureteral stone. Concerning is causing this much pain this proximal in high in the ureter. Reviewing his previous notes he is not previously had a stone on the left side they have been on the right. There is a possibility of a stricture or stenotic area that is getting caught up in. A contact Dr. White relayed my concerns he will see the patient in an expedited fashion. Relayed to the patient he should be seen within the next couple of days at Dr. White's office. Increase his Percocet strength also given promethazine and have him double up on his tamsulosin 1. Return if pain is uncontrolled time discharge pain is well controlled. Medical Records I reviewed the patient's medical records. Lab Data I reviewed the patient's lab results. : 06/08/22 14:15 06/08/22 14:15 Labs/Radiology: Radiology Impressions Abdomen/Pelvis CT 06/08/22 15:34 IMPRESSION: 2 mm stone noted in the proximal left ureter. A few additional scattered punctate nonobstructing stones noted in both kidneys. Laboratory Results WBC 8.7 10^3/uL (4.0-10.0) 06/08/22 14:15 RBC 4.61 10^6/uL (4.1-5.3) 06/08/22 14:15 Hgb 14.8 g/dL (11.7-16.6) 06/08/22 14:15 Hct 42.6 % (42.0-52.0) 06/08/22 14:15 MCV 92.4 fl (80-94) 06/08/22 14:15 MCH 32.1 pg (28.0-34.0) 06/08/22 14:15 MCHC 34.7 g/dL (30.0-36.0) 06/08/22 14:15 RDW 12.3 % (12.1-15.1) 06/08/22 14:15 Plt Count 154 10^3/cmm (130-400) 06/08/22 14:15 MPV 11.9 fL (7.4-10.4) H 06/08/22 14:15 Neut % (Auto) 86.0 % 06/08/22 14:15 Lymph % (Auto) 6.5 % 06/08/22 14:15 [place] % (Auto) 6.7 % 06/08/22 14:15 Eos % (Auto) 0.1 % 06/08/22 14:15 Baso % (Auto) 0.2 % 06/08/22 14:15 Neut # (Auto) 7.46 10^3/uL (1.8-7.7) 06/08/22 14:15 Lymph # (Auto) 0.6 10^3/uL (0.8-4.8) L 06/08/22 14:15 [place] # (Auto) 0.6 10^3/uL (0.2-0.9) 06/08/22 14:15 Eos # (Auto) 0.0 10^3/uL (0.0-0.8) 06/08/22 14:15 Baso # (Auto) 0.0 10^3/uL (0.0-0.1) 06/08/22 14:15 Nucleated RBC % (auto) 0 % 06/08/22 14:15 Nucleated RBCs # 0.0 /100WBC 06/08/22 14:15 Sodium 140 mmol/L (136-145) 06/08/22 14:15 Potassium 3.6 mmol/L (3.5-5.1) 06/08/22 14:15 Chloride 104 mmol/L (98-107) 06/08/22 14:15 Carbon Dioxide 20 mmol/L (22-29) L 06/08/22 14:15 Anion Gap 19.6 (5-19) H 06/08/22 14:15 BUN 18 mg/dL (6-20) 06/08/22 14:15 Creatinine 0.9 mg/dL (0.7-1.2) 06/08/22 14:15 GFR Calculation 87.0 mL/min (90-130) L 06/08/22 14:15 Glucose 115 mg/dL (65-115) 06/08/22 14:15 Calculated Osmolality 293 mOsm/kg (285-295) 06/08/22 14:15 Calcium 9.4 mg/dL (8.5-10.5) 06/08/22 14:15 Urine Color Yellow (Yellow) 06/08/22 14:55 Urine Appearance Sl hazy (CLEAR) A 06/08/22 14:55 Urine pH 9 (5-7) H 06/08/22 14:55 Ur Specific [place] 1.010 (1.005-1.030) 06/08/22 14:55 Urine Protein Neg (Negative) 06/08/22 14:55 Urine Glucose (UA) Norm (Normal) 06/08/22 14:55 Urine Ketones 1+ (Negative) H 06/08/22 14:55 Urine Blood 3+ (Negative) H 06/08/22 14:55 Urine Nitrate Negative (Negative) 06/08/22 14:55 Urine Bilirubin Neg (Negative) 06/08/22 14:55 Prot Sulfosalicylic Acd Negative (Negative) 06/08/22 14:55 Urine Urobilinogen Norm mg/dL (Negative) 06/08/22 14:55 Ur Leukocyte Esterase Negative (Negative) 06/08/22 14:55 Urine RBC Too numerous to cnt /hpf (0-2) H 06/08/22 14:55 Urine WBC 0-4 /hpf (0-5) H 06/08/22 14:55 Ur Squamous Epith Cells 0-4 /hpf (0-5) H 06/08/22 14:55 Amorphous Sediment Not Reportable 06/08/22 14:55 Urine Bacteria Trace /hpf (NONE) 06/08/22 14:55 Urine Mucus Trace /hpf 06/08/22 14:55 Discharge Plan Discharge Patient Disposition: Home Clinical Impression: Calculus of proximal left ureter Condition: Stable Prescriptions: New Flomax 0.4 mg capsule 0.4 mg PO BID Qty: 60 0RF Percocet 10-325 mg tablet 1 tab PO Q4H PRN (Reason: pain) Qty: 30 0RF promethazine 25 mg tablet 25 mg PO Q6H PRN (Reason: nausea and vomiting) Qty: 20 0RF Discontinued oxycodone-acetaminophen [Percocet] 7.5-325 mg tablet 1 tab PO Q6H PRN (Reason: pain) Qty: 20 0RF No Action Flomax 0.4 mg capsule 0.4 mg PO DAILY Qty: 90 3RF promethazine 25 mg tablet 25 mg PO Q6H PRN (Reason: nausea and vomiting) Qty: 20 0RF Discharge Orders: Discharge ED (Routine); Ordered 06/08/22 Ordered By: Will Wharton Referrals: Isac Ornelas, [Primary Care Provider] - Discharge Diet: Usual diet Discharge Activity: Increase activity as tolerated Patient Instructions: Opioid Safety, Pain Management Activity Restrictions/Additional Instructions: Call Dr. White office to set up follow-up as soon as you are able. If pain is not controlled well at home return to the emergency room Coding Level of Care Code ED Renewals Specialist for Chg Fwd Exam Detailed
[2022-06-08 15:22] VITALS: RESP 16
[2022-06-08] MEDS: morphine 4 mg/mL SDV 1 mL 2 MG IVP (15:22)
[2022-06-08] MEDS: morphine 4 mg/mL SDV 1 mL IVP (15:22)
--- NOTE | 2022-06-08 15:34 | CTR_ITS ---
PROCEDURE INFORMATION: Exam: CT Abdomen And Pelvis Without Contrast Exam date and time: 06/08/2022 4:02 PM Age: 57 years old Clinical indication: Abdominal pain; Flank; Left; Prior surgery; Surgery date: 6+ months; Surgery type: Hernia; Additional info: Flank pain TECHNIQUE: Imaging protocol: Computed tomography of the abdomen and pelvis without contrast. COMPARISON: CT kidney stone [id number] 03/10/2021 3:52 PM RADIATION DOSE METRICS: Total DLP (mGy-cm): 901.26 FINDINGS: Liver: Normal. No mass. Gallbladder and bile ducts: Normal. No calcified stones. No ductal dilation. Pancreas: Normal. No ductal dilation. Spleen: Normal. No splenomegaly. Adrenal glands: Normal. No mass. Kidneys and ureters: Bilateral perirenal cysts, more prominent on the left. There is a 2 mm stone noted in the proximal left ureter. A few additional scattered punctate nonobstructing stones noted in both kidneys. Stomach and bowel: Unremarkable. No obstruction. No mucosal thickening. Appendix: No evidence of appendicitis. Intraperitoneal space: Unremarkable. No free air. No significant fluid collection. Vasculature: Unremarkable. No abdominal aortic aneurysm. Lymph nodes: Unremarkable. No enlarged lymph nodes. Urinary bladder: Unremarkable as visualized. Reproductive: Unremarkable as visualized. Bones/joints: No acute fracture. Soft tissues: Small fat containing left inguinal hernia. CT/CT kidney stone [id number] IMPRESSION: 2 mm stone noted in the proximal left ureter. A few additional scattered punctate nonobstructing stones noted in both kidneys.
[2022-06-08 15:38] LABS: Add Urine Culture? Yes; Add Urine Microscopic? YES; Bacteria Urine TRACE /hpf; Bilirubin Urine Neg (Negative); Blood Urine 3+ (Negative); Glucose Urine UA Norm (Normal); Ketones Urine 1+ (Negative); Leukocyte Esterase Urine Negative (Negative); Mucus Urine TRACE /hpf; Nitrate Urine Negative (Negative); Protein Urine Neg (Negative); RBC Urine TOO NUMEROUS TO CNT /hpf (0-2); Squamous Epithelial Cell Urine 0-4 /hpf (0-5); Sulfosalicylic Acid Urine Negative (Negative); Urine Appearance SL Hazy (CLEAR); Urine Color Yellow (Yellow); Urobilinogen Urine Norm (Negative); WBC Urine 0-4 /hpf (0-5); pH Urine 9 (5-7)
[2022-06-08 15:44] VITALS: BP 132/75; PULSE 85; RESP 16; O2SAT 95
[2022-06-08 17:01] VITALS: RESP 16
[2022-06-08 17:36] VITALS: BP 128/82; PULSE 71; RESP 17; O2SAT 98
== END 2022-06-08 17:37 | disposition home or self-care (01) ==
PROVIDERS: Emergency Provider Family Medicine; PCP Electrodiagnostic Medicine
DX: N20.1 Calculus of ureter (principal); Z87.442 Personal history of urinary calculi
CPT/HCPCS: 74176; 80048; 81001; 85025; 87086; 96374; 96375; 96376; 99285; J2270; J2405

== ENCOUNTER 2023-07-01 08:12 | Outpatient (CLI) | payer SELFPAY ==
--- NOTE | 2023-07-01 | XR_ITS ---
NOTE: Report was unsigned for reason: Order was edited. New Original Signature date and time was: [address] [address] [place] [id number] XRay Report Patient: Emilia Rodriguez Unit #: [id number] : 1965 Age/Sex: 58 / M ADM Date: 07/01/23 Loc: RAD Room/Bed: Attending Dr: Yolette Garcia Ordering Provider/Ordering MD: Date of Service: Procedure(s): Accession Number(s): Report Number: [id number] [employer] Final Radiology Report Call: [phone] assistance Online chat: [email or web address] Name: EMILIA RODRIGUEZ Age: 58Years M Date: 07/01/2023 SSN: [id number] : 1965 Study: XR ABDOMEN 2 VIEWS Requesting Physician: YOLETTE GARCIA Images: 4 Add?l Studies: PROCEDURE INFORMATION: Exam: XR Abdomen Exam date and time: 07/01/2023 8:56 AM Age: 58 years old Clinical indication: Condition or disease; Kidney or ureter condition; Calculus (stone) in kidney; Prior surgery; Surgery date: 6+ months; Surgery type: Hernia; Additional info: Bilateral nephrolithiasis, ureteral stone, kub, with upright films TECHNIQUE: Imaging protocol: Radiologic exam of the abdomen. Views: 2 Views. Upright and supine views. COMPARISON: CT kidney stone [id number] 06/08/2022 4:02 PM FINDINGS: Gastrointestinal tract: Normal. No bowel dilation. Intraperitoneal space: Normal. No free air. Organs: No obvious urinary calculi. Bones/joints: Unremarkable for age. IMPRESSION: No acute findings. Thank you for allowing us to participate in the care of your patient. Dictated and Authenticated by: Sukhjinder Mcghee MD 07/01/2023 9:53 AM Central Time ([place] & [place]) Dictated By:DOCTOR NOT ON FILE Signed By: Signed Date/Time: DD/ 1555 MTDD
--- NOTE | 2023-07-01 | XRR_ITS ---
[facility] Final Radiology Report Call: [phone] assistance Online chat: [email or web address] Name: EMILIA RODRIGUEZ Age: 58Years M Date: 07/01/2023 SSN: [id number] : 1965 Study: XR ABDOMEN 2 VIEWS Requesting Physician: YOLETTE ERICKSON Images: 4 Add?l Studies: PROCEDURE INFORMATION: Exam: XR Abdomen Exam date and time: 07/01/2023 8:56 AM Age: 58 years old Clinical indication: Condition or disease; Kidney or ureter condition; Calculus (stone) in kidney; Prior surgery; Surgery date: 6+ months; Surgery type: Hernia; Additional info: Bilateral nephrolithiasis, ureteral stone, kub, with upright films TECHNIQUE: Imaging protocol: Radiologic exam of the abdomen. Views: 2 Views. Upright and supine views. COMPARISON: CT kidney stone [id number] 06/08/2022 4:02 PM FINDINGS: Gastrointestinal tract: Normal. No bowel dilation. Intraperitoneal space: Normal. No free air. Organs: No obvious urinary calculi. Bones/joints: Unremarkable for age. IMPRESSION: No acute findings. Thank you for allowing us to participate in the care of your patient. Dictated and Authenticated by: Sukhjinder Mcghee MD 07/01/2023 9:53 AM Central Time ([place] & [place]) [facility]
--- NOTE | 2023-07-01 18:19 | XRR_ITS ---
NOTE: Report was unsigned for reason: Order was edited. New Original Signature date and time was: 07/01/2023 0953 [facility] [address] [place] [address] XRay Report Signed Patient: Emiila Rodriguez Unit #: [id number] : 1965 Age/Sex: 58 / M ADM Date: 07/01/23 Loc: RAD Room/Bed: Attending Dr: Yolette Garcia Ordering Provider/Ordering MD: Date of Service: Procedure(s): Accession Number(s): Report Number: [id number] [facility] Final Radiology Report Call: [phone] assistance Online chat: [email or web address] Name: EMILIA RODRIGUEZ Age: 58Years M Date: 07/01/2023 SSN: [id number] : 1965 Study: XR ABDOMEN 2 VIEWS Requesting Physician: YOLETTE GARCIA Images: 4 Add?l Studies: PROCEDURE INFORMATION: Exam: XR Abdomen Exam date and time: 07/01/2023 8:56 AM Age: 58 years old Clinical indication: Condition or disease; Kidney or ureter condition; Calculus (stone) in kidney; Prior surgery; Surgery date: 6+ months; Surgery type: Hernia; Additional info: Bilateral nephrolithiasis, ureteral stone, kub, with upright films TECHNIQUE: Imaging protocol: Radiologic exam of the abdomen. Views: 2 Views. Upright and supine views. COMPARISON: CT kidney stone [id number] 06/08/2022 4:02 PM FINDINGS: Gastrointestinal tract: Normal. No bowel dilation. Intraperitoneal space: Normal. No free air. Organs: No obvious urinary calculi. Bones/joints: Unremarkable for age. IMPRESSION: No acute findings. Thank you for allowing us to participate in the care of your patient. Dictated and Authenticated by: Sukhjinder Mcghee MD 07/01/2023 9:53 AM Central Time ([place] & Otf) Dictated By:DOCTOR NOT ON FILE Signed By: Signed Date/Time: DD/ 1555 MTDD
== END 2023-07-01 08:13 | disposition home or self-care (01) ==
PROVIDERS: PCP Electrodiagnostic Medicine; Visit Provider Urology
DX: N20.2 Calculus of kidney with calculus of ureter (principal)
CPT/HCPCS: 74019

== ENCOUNTER 2024-07-06 07:03 | Outpatient (CLI) | payer SELFPAY ==
--- NOTE | 2024-07-06 07:15 | XR_ITS ---
WS: [id number] XR KUB [id number] REASON FOR EXAM: HX OF NEPHROLITHIASIS FINDINGS: No free air or retroperitoneal air. Unremarkable bowel gas pattern No urinary tract calculi are identified. (Previous CT scan 06/08/2022 demonstrated tiny bilateral int rarenal calculi with proximal left ureteral calculus.) No mass identified. Degenerative spondylosis in the lower lumbar spine and mild to moderate osteoarthritis in both hips. XR/XR KUB [id number] IMPRESSION: No urinary tract calculi identified.
== END 2024-07-06 07:04 | disposition home or self-care (01) ==
PROVIDERS: PCP Electrodiagnostic Medicine; Visit Provider Urology
DX: Z87.442 Personal history of urinary calculi (principal)
CPT/HCPCS: 74018

== ENCOUNTER 2025-06-17 11:01 | Emergency (ER) | payer SELFPAY ==
[2025-06-17] VITALS (8 sets, daily range): BP systolic 129–165; BP diastolic 74–102; PULSE 79–88; RESP 16; TEMP 36.4; O2SAT 93–99; BMI 30.2
--- NOTE | 2025-06-17 11:13 | CT_ITS ---
WS: [id number] CT ABDOMEN PELVIS TECHNIQUE: Noncontrast CT of the abdomen and pelvis with coronal and sagittal reformatted images. CLINICAL INFORMATION: flank pain, hx of stones COMPARISON: 2021 DLP: 989.[address] scans at [facility] use at least one of these dose optimization techniques: automated exposure control; mA and/or kV adjustment per patient size (includes targeted exams where dose is matched to clinical indication); or iterative reconstruction. FINDINGS: Extensive bilateral peripelvic renal cysts. Small obstructing LEFT proximal ureteral calculus measuring 2.3 mm. Remainder of the LEFT ureter is decompressed. Slight induration about the LEFT kidney. Mild dilatation of the renal pelvis. No obstructing RIGHT renal or ureteral calculi. A few tiny subcentimeter nonobstructing RIGHT calyceal tip calculi. Normal noncontrast liver and spleen. Moderate esophageal hiatal hernia. Air- fluid level in the hernia. Noncalcified nodule pleural-based in the lingula measuring 9 mm. This measured 7 mm [id number]. Recommend chest CT follow-up. Normal noncontrast pancreas. Fat-containing LEFT greater than RIGHT inguinal hernias. Prostate calcification. Enlarged prostate measuring 4.5 cm Small fat-containing umbilical hernia CT/CT kidney stone [id number] IMPRESSION: 1. 2.3 mm obstructing LEFT proximal ureteral calculus. Distal LEFT ureter is d ecompressed. Slight induration about the LEFT kidney. 2. Extensive bilateral peripelvic renal cysts similar to previous. 3. A few nonobstructing RIGHT calyceal tip calculi. 4. Moderate esophageal hiatal hernia. 5. 9 mm pleural based nodule in the lingula. Recommend chest CT follow-up. 6. Enlarged prostate. Recommend correlation PSA.
--- NOTE | 2025-06-17 11:29 | ED_ITS ---
HPI - Back Pain/Injury 2 General: Chief Complaint: Back Pain/Injury Stated Complaint: Lower back pain Time Seen by Provider: 06/17/25 11:11 History of Present Illness: 60 yo M with hx of recurrent nephrolithi asis (approximately three prior episodes, none requiring surgery) presents with acute flank pain that began upon waking this morning. Pain localized to the back, not radiating to the front or abdomen at this time. Pain is severe, non-positional, and not reproducible with palpation. Denies fever and diarrhea. Reports a mild cough per pressure controller, without additional respiratory symptoms. States prior stones have passed spontaneously. Related Data Previous Rx's ?Medication ?Instructions ?Recorded promethazine 25 mg tablet 25 mg PO Q6H PRN nausea and 03/17/21 vomiting #20 tabs tamsulosin 0.4 mg capsule (Flomax) 0.4 mg PO DAILY #90 caps 03/17/21 oxycodone-acetaminophen 10 mg-325 1 tab PO Q4H PRN seth n #30 tabs 06/08/22 mg tablet (Percocet) promethazine 25 mg tablet 25 mg PO Q6H PRN nausea and 06/08/22 vomiting #20 tabs tamsulosin 0.4 mg capsule (Flomax) 0.4 mg PO BID #60 c aps 06/08/22 ketorolac 10 mg tablet 10 mg PO Q8H PRN pain #20 ta bs 06/17/25 ondansetron 4 mg disintegrating 4 mg PO Q8H PRN nausea and 06/17/25 tablet vomiting #20 tabs oxycodone-acetaminophen 5 mg-325 1 tab PO Q8H PRN pain #20 tabs 10/20/25 mg tablet (Percocet) Allergies Allergy/AdvReac Type Severity Reaction Status Date / Time No Known Allergies Allergy Verified 07/13/21 08:39 PFSH ED 2 PFSH: Medical History (Updated 06/17/25 @ 12:41 by Josias Jefferson DO) Left ureteral stone BPH loc w urin obs/LUTS Family History Mother Cancer Breast Father CAD (coronary artery disease) Social History Alcohol intake: never Substance/Drug Use: never Marital status: Current occupational status: employed Physical Exam 2 Narrative: EXAM NARRATIVE: Moderate distress due to pain, diaphoretic Const: COMMON NORMALS: patient oriented x3 and alert HENMT: COMMON NORMALS: normocephalic and atraumatic HEAD & SCALP: n ormocephalic and atraumatic Eye: COMMON NORMALS: Equal, round and reactive pupils present, EOMs intact bilaterally and no scleral icterus PUPIL: Yes Equal, round and reactive pupils present Resp: COMMON NORMALS: normal respiratory effort and No retractions Cardio: COMMON NORMALS: regular rate, regular rhythm and No murmurs present (Cardio) RATE: regular rate RHYTHM: regular rhythm GI: COMMON NORMALS: Normal to inspection, nondistended, normoactive bowel sounds present, Soft to palpation and non-tender PALPATION: Yes Soft to palpation OTHER: Pain not reproducible with palpation Neuro: COMMON NORMALS: patient oriented x3 SENSORIUM/ORIENTATION: Yes alert Skin: COMMON NORMALS: no rashes or lesions noted GENERAL SKIN EXAM: no rashes or lesions noted Course 2 Vital Signs: Vital signs: Vital Signs Temperature 97.5 F L 06/17/25 11:08 Pulse Rate 79 06/17/25 12:57 Respiratory Rate 16 06/17/25 12:57 Blood Pressure 129/74 06/17/25 12:57 Pulse Oximetry 97 06/17/25 12:57 Oxygen Delivery Me thod Room Air 06/17/25 12:41 MDM - Back Pain/Injury Medical Decision Making 60 yo M with recurrent nephrolithiasis presents with acute back/flank pain starting this morning, non-radiating, severe, consistent with prior stones. Denies fever/diarrhea; mild cough noted. Vital signs reported stable. PE: lungs clear; mild diaphoresis; moderate distress; flank/back pain not reproducible; abdomen palpation non-tender for reproducible pain. CT scan confirms a proximal left 2.3 mm ureteral stone. Pain is much better with morphine, Toradol, and Zofran has helped nausea considerably. He would like to go home and I think this is reasonable. He already plans to see his urologist in several weeks. He will be discharged with a short course of Percocet, Toradol, and ODT Zofran with instructions to follow-up with urology as soon as feasible. He shows good understanding and agrees to the plan. I suspect his stone will pass spontaneously. Remainder of workup is noncontributory Labs 06/17/25 11:15 06/17/25 11:15 Radiology Impressions Abdomen/Pelvis CT 06/17/25 11:13 IMPRESSION: 1. 2.3 mm obstructing LEFT proximal ureteral calculus. Distal LEFT ureter is decompressed. Slight induration about the LEFT kidney. 2. Extensive bilateral peripelvic renal cysts similar to previous. 3. A few nonobstructing RIGHT calyceal tip calculi. 4. Moderate esophageal hiatal hernia. 5. 9 mm pleural based nodule in the lingula. Recommend chest CT follow-up. 6. Enlarged prostate. Recommend correlation PSA. Laboratory Results WBC 9.56 10^3/uL (3.29-11.43) 06/17/25 11:15 RBC 4.66 10^6/uL (3.85-5.65) 06/17/25 11:15 Hgb 14.70 g/dL (11.27-16.99) 06/17/25 11:15 Hct 41.0 % (37-53) 06/17/25 11:15 MCV 88.0 fl (82-101) 06/17/25 11:15 MCH 31.5 pg (27-33) 06/17/25 11:15 MCHC 35.9 g/dL (30-55) 06/17/25 11:15 RDW 12.1 % (12.1-15.1) 06/17/25 11:15 Plt Count 157 10^3/cmm (157-399) 06/17/25 11:15 MPV 10.9 fL (7.4-10.4) H 06/17/25 11:15 Neut % (Auto) 86.6 % 06/17/25 11:15 Lymph % (Auto) 7.0 % 06/17/25 11:15 [place] % (Auto) 5.6 % 06/17/25 11:15 Eos % (Auto) 0.1 % 06/17/25 11:15 Baso % (Auto) 0.3 % 06/17/25 11:15 Neut # (Auto) 8.27 10^3/uL (1.8-7.7) H 06/17/25 11:15 Lymph # (Auto) 0.7 10^3/uL (0.8-4.8) L 06/17/25 11:15 [place] # (Auto) 0.5 10^3/uL (0.2-0.9) 06/17/25 11:15 Eos # (Auto) 0.0 10^3/uL (0.0-0.8) 06/17/25 11:15 Baso # (Auto) 0.0 10^3/uL (0.0-0.1) 06/17/25 11:15 Nucleated RBC % (auto) 0 % 06/17/25 11:15 Nucleated RBCs # 0.0 /100WBC 06/17/25 11:15 Sodium 139 mmol/L (136-145) 06/17/25 11:15 Potassium 3.9 mmol/L (3.5-5.1) 06/17/25 11:15 Chloride 104 mmol/L (98-107) 06/17/25 11:15 Carbon Dioxide 19 mmol/L (22-29) L 06/17/25 11:15 Anion Gap 19.9 (5-19) H 06/17/25 11:15 BUN 12 mg/dL (8-23) 06/17/25 11:15 Creatinine 0.8 mg/dL (0.7-1.2) 06/17/25 11:15 GFR Calculation 98.6 mL/min (90-130) 06/17/25 11:15 Glucose 114 mg/dL (65-115) 06/17/25 11:15 Calculated Osmolality 289 mOsm/kg (285-295) 06/17/25 11:15 Calcium 9.2 mg/dL (8.5-10.5) 06/17/25 11:15 Total Bilirubin 0.4 mg/dL (0.15-1.2) 06/17/25 11:15 AST 19 U/L (0-40) 06/17/25 11:15 ALT 15 U/L (0-41) 06/17/25 11:15 Alkaline Phosphatase 86 U/L (40-130) 06/17/25 11:15 Total Protein 6.4 g/dL (6.6-8.7) L 06/17/25 11:15 Albumin 4.5 g/dL (3.5-5.2) 06/17/25 11:15 Globulin 1.9 g/dL (1.3-4.6) 06/17/25 11:15 Urine Color Red (Yellow) A 06/17/25 11:18 Urine Appearance Turbid (CLEAR) A 06/17/25 11:18 Urine pH 6.5 (5-7) 06/17/25 11:18 Ur Specific Early 1.015 (1.005-1.030) 06/17/25 11:18 Urine Protein 1+ (Negative) A 06/17/25 11:18 Urine Glucose (UA) Negative (Normal) 06/17/25 11:18 Urine Ketones Negative (Negative) 06/17/25 11:18 Urine Blood 3+ (Negative) A 06/17/25 11:18 Urine Nitrate Negative (Negative) 06/17/25 11:18 Urine Bilirubin Negative (Negative) 06/17/25 11:18 Urine Urobilinogen 1.0 mg/dL (Negative) 06/17/25 11:18 Ur Leukocyte Esterase Trace (Negative) A 06/17/25 11:18 Urine RBC >100 /hpf (0-2) H 06/17/25 11:18 Urine WBC 5-10 /hpf (0-5) H 06/17/25 11:18 Ur Squamous Epith Cells 0-4 /hpf (0-5) H 06/17/25 11:18 Amorphous Sediment Not Reportable 06/17/25 11:18 Urine Bacteria Trace /hpf (NONE) 06/17/25 11:18 Urine Mucus Trace /hpf 06/17/25 11:18 All radiology interpretation(s) finalized by discharge Discharge Plan Discharge Patient Disposition: Home Clinical Impression: Calculus, ureteral Condition: Stable Prescriptions: New oxycodone-acetaminophen [Percocet] 5-325 mg tablet 1 tab PO Q8H PRN (Reason: pain) Qty: 20 0RF ketorolac 10 mg tablet 10 mg PO Q8H PRN (Reason: pain) Qty: 20 0RF ondansetron 4 mg tablet,disintegrating 4 mg PO Q8H PRN (Reason: nausea and vomiting) Qty: 20 0RF No Action Flomax 0.4 mg capsule 0.4 mg PO DAILY Qty: 90 3RF promethazine 25 mg tablet 25 mg PO Q6H PRN (Reason: nausea and vomiting) Qty: 20 0RF Flomax 0.4 mg capsule 0.4 mg PO BID Qty: 60 0RF Percocet 10-325 mg tablet 1 tab PO Q4H PRN (Reason: pain) Qty: 30 0RF promethazine 25 mg tablet 25 mg PO Q6H PRN (Reason: nausea and vomiting) Qty: 20 0RF Discharge Orders: Discharge ED (Routine); Ordered 06/17/25 Ordered By: Josias Jefferson Referrals: Isac Ornelas, DO [Primary Care Provider, Family Practice] Discharge Diet: Usual diet Discharge Activity: Increase activity as tolerated Patient Instructions: Kidney Stones (ED), Patient Portal & [facility] Instructions Activity Restrictions/Additional Instructions: Your kidney stone today is located in the upper portion of the ureter but is only 2.3 mm in diameter. Drinking more water is the most important intervention you can make to stop having so many kidney stones. Also, avoiding eating high sodium foods like processed meats and canned goods can help. High oxalate foods like spinach chocolate and nuts can also cause you to have more kidney stones. If your pain persist for more than several days please contact your urologist to see if they feel you require surgical intervention. I suspect this will not be necessary given the small size of your stone Print Language: Canadian Coding Level of Care Code ED Financial Operations Analyst for Marcellus Hwang
[2025-06-17 11:30] LABS: Glucose Urine UA Negative (Normal); Nitrate Urine Negative (Negative); Specific Gravity, Urine 1.015 (1.005-1.030)
[2025-06-17] MEDS: ondansetron 2 mg/ML SDV 2 mL 4 MG IVP (11:42)
[2025-06-17] MEDS: morphine 4 mg/mL SDV 1 mL IVP (11:42)
[2025-06-17 11:47] LABS: Add Urine Microscopic? YES
[2025-06-17 11:59] LABS: Hematocrit 41.0 % (37-53); Hemoglobin 14.70 g/dL (11.27-16.99); Mean Corpuscular HGB Conc 35.9 g/dL (30-55); Mean Corpuscular Hemoglobin 31.5 pg (27-33); Mean Corpuscular Volume 88.0 fl (82-101); Nucleated Red Blood Cells % 0 %; Platelet Count 157 10^3/cmm (157-399); Red Blood Count 4.66 10^6/uL (3.85-5.65); White Blood Count 9.56 10^3/uL (3.29-11.43)
[2025-06-17 12:20] LABS: Alanine Aminotransferase 15 U/L (0-41); Albumin Level 4.5 g/dL (3.5-5.2); Alkaline Phosphatase 86 U/L (40-130); Aspartate Amino Transferase 19 U/L (0-40); Blood Urea Nitrogen 12 mg/dL (8-23); Calcium 9.2 mg/dL (8.5-10.5); Carbon Dioxide 19 mmol/L (22-29); Chloride 104 mmol/L (98-107); Creatinine Clr Calc Pharmacy 127.7189; Globulin 1.9 g/dL (1.3-4.6); Glucose 114 mg/dL (65-115); Osmolality Calculated 289 mOsm/kg (285-295); Sodium 139 mmol/L (136-145); Total Protein 6.4 g/dL (6.6-8.7)
[2025-06-17 12:22] LABS: Anion Gap 19.9 (5-19); Potassium 3.9 mmol/L (3.5-5.1)
[2025-06-17] MEDS: oxyCODONE-APAP 5-325 mg Tablet 1 TAB PO (12:46)
== END 2025-06-17 12:58 | disposition home or self-care (01) ==
PROVIDERS: Emergency Provider Student in an Organized Health Care Education/Training Program; PCP Electrodiagnostic Medicine
DX: N20.1 Calculus of ureter (principal)
CPT/HCPCS: 74176; 80053; 81001; 85025; 87086; 96374; 96375; 99285; J1885; J2270; J2405; J7030; J9999

== ENCOUNTER 2025-06-18 02:56 | Emergency (ER) | payer SELFPAY ==
--- OUTSIDE RECORDS SUMMARY | 2025-06-18 03:02 | XMS_ITS | Encounter Summary ---
Author Organization [facility] Address [address] [place] [address] Care Team Providers Care Aviation Technician Aircraft Name Role Phone Anil Hinton MD, Felipe Brewer Primary Care Provider [phone] Encounter Details Date Type Department Care Team (Latest Contact Info) Description 11/11/2000 Outpatient Historical [facility] Gen Spec [facility]urg [place] [address] [place] [id number] Wili Anthony MD NO ADDRESS ON FILE Inguinal hernia without mention of obstruction or gangrene, unilateral or unspecified, (not specified as recurrent) (Primary Dx) Social History Tobacco Use Types Packs/Day Years Used Date Smoking Tobacco: Never Assessed Sex and Gender Information Value Date Recorded Sex Assigned at Not on file 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
--- OUTSIDE RECORDS SUMMARY | 2025-06-18 03:02 | XMS_ITS | Encounter Summary ---
Author Organization [facility] Address [address] 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
--- OUTSIDE RECORDS SUMMARY | 2025-06-18 03:02 | XMS_ITS | Encounter Summary ---
Author Organization [facility] Address [address] [place] [address] Care Team Providers Care Firer Glost Kiln Name Role Phone Anil Hinton MD, Felipe Brewer Primary Care Provider [phone] Encounter Details Date Type Department Care Team (Latest Contact Info) Description 06/10/2000 Outpatient Historical [facility] [address] [facility] [address] [place] [address] Felipe Ma Jr., MD [address] [place] [address] Inguinal hernia without mention of obstruction or gangrene, unilateral or unspecified, (not specified as recurrent) (Primary Dx) Social History Tobacco Use Types Packs/Day Years Used Date Smoking Tobacco: Never Assessed Sex and Gender Information Value Date Recorded Sex Assigned at Not on file 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
--- OUTSIDE RECORDS SUMMARY | 2025-06-18 03:02 | XMS_ITS | Clinical Summary ---
Author Organization [facility] Address [address] [place] [address] Care Team Providers Care Distillation Operator Helper Name Role Phone Anil Hinton MD, Felipe Brewer Primary Care Provider [phone] Allergies No known active allergies Medications famotidine (PEPCID) 20 mg tablet Take 1 Tablet (20 mg) by mouth 2 times daily. 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 Gender Identity Not on file Sexual Orientation Not on file Occupation Industry Job Start Date Job End Date Not on file Not on file Not on file Not on file Last Filed Vital Signs Vital Sign Reading Time Taken Comments Blood Pressure 138/80 03/09/2019 10:06 AM CDT Pulse 74 03/09/2019 10:06 AM CDT Temperature 36.3 C (97.4 F) 03/25/2013 4:53 PM CDT Respiratory Rate 18 03/25/2013 8:16 PM CDT Oxygen Saturation 95% 03/25/2013 8:16 PM CDT Inhaled Oxygen Concentration - - Weight 105.2 kg (232 lb) 03/09/2019 10:06 AM CDT Height 188 cm (6' 2 ) 03/09/2019 10:06 AM CDT Body Mass Index 29.79 03/09/2019 10:06 AM CDT Plan of Treatment Health Maintenance Due Date Last Done Comments DTAP/TDAP/TD VACCINES (1 - Tdap) 02/17/1984 COLORECTAL SCREENING 2010 Colorectal Cancer Screening 2010 FIT-DNA Q 3 years 2010 FIT/FOBT Q 1 year 2010 Flex Sig/CT Colonography Q 5 years 2010 ZOSTER VACCINE (1 of 2) 2015 INFLUENZA VACCINE (#1) 2025 RSV VACCINE (60+ or ) (1 - 1-dose 75+ series) 02/17/2040 HEPATITIS B VACCINES Aged Out No long er eligible based on patient's age to complete this topic Care Teams Distillation Operator Helper Relationship Specialty Start Date End Date Felipe Ma Jr., MD PCP - General 07/16/05
--- OUTSIDE RECORDS SUMMARY | 2025-06-18 03:02 | XMS_ITS | Encounter Summary ---
Author Organization [facility] Address [address] [place] [address] Care Team Providers Care Injector Assembler Name Role Phone Anil Hinton MD, Felipe Brewer Primary Care Provider [phone] Encounter Details Date Type Department Care Team (Latest Contact Info) Description 11/28/2000 Outpatient Historical [facility] Gen Spec Surg [place] 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
--- OUTSIDE RECORDS SUMMARY | 2025-06-18 03:02 | XMS_ITS | Data Portability ---
Author Organization WINIFRED Lon Springer [facility], Boy, [facility] Address [address] [address] Assessment Encounter Date Assessment Date Assessment LastModified by Organization Details LastModified Time 12/18/2024 12/18/2024 Document scribed by Bassem Laguerre, Orthopedic Brace Maker. I was present during interview and exam. I have reviewed and agree with above documentation . Dr. Isac Ornelas. [email or web address] Not available 12/18/2024 08:19:11 Plan of Treatment Reminders Order Date Submit Date Provider Last Modified By Organization Details Last Modified Time Details Appointments RECHECK 10 2024 07:10A M Isac Ornelas, DO Not available Not available Not available Lab PSA, serum or plasma 2024 [address] [address], [address], [place], [address], 12/15/2024 04:22:50 CMP, serum or plasma 2024 [address], [address], [place], [address], 12/15/2024 04:22:48 lipid panel, serum [address], [address], [place], [address], 12/15/2024 04:22:47 CMP, serum or plasma 2023 024 VALERIA [facility], [address] [facility] [address], [address], [place], [address], 05/29/2024 12:32:17 lipid panel, serum 2023 VALERIA [facility] [facility], [address] [facility] [address], [address] [place], [address], 05/29/2024 12:32:17 Referral None recorded . Procedures None recorded . Surgeries None recorded . Imaging None recorded . Medication Orders None recorded . Patient TargetsNo targets recorded. Patient InstructionsNo instructions recorded. Reason for Referral None Reported. Results Created Date Observation Date Name Description Value Unit Range Abnormal Flag Note LastModifiedBy Organization Detail LastModifiedTime 11/22/1911/23/2023 LIPID PANEL , STAND NIKIA cholesterol, total 160 mg/dL <200 normal Not Available [address], [address], 11/23/2023 07:07:04 11/22/1911/23/2023 LIPID PANEL , STAND NIKIA HDL cholesterol 41 mg/dL > or = 40 normal Not Available [address], [address], 11/23/2023 07:07:04 11/22/1911/23/2023 LIPID PANEL , STAND NIKIA triglyceride s 88 mg/dL <150 normal Not Available [address], [address], 11/23/2023 07:07:04 11/22/1911/23/2023 LIPID PANEL , STAND NIKIA LDL-choleste rol 101 mg/dL _(zaida c) high Refer ence range : <100 Arianne able range <100 mg/dL for prima ry preve ntion ; <70 mg/dL for patie nts with CHD or diabe tic patie nts with > or = 2 CHD risk facto rs. LDL-C is now calcu lated using the [facility] n-Hop kins calcu carolin n, which is a valid ated novel metho d provi mehreen bingham r accur acy than the Fried ju equat ion in the estim ation of LDL-C . Chrissy n SS et al. WALLACE. 2013; 310(1 9): 2061- 2068 (http ://ed ucati on.Qu Shirley winslow[employer]. [employer]/f aq/FA Q164) Not Available [address] [address] [place], [address], 11/23/2023 07:07:04 11/22/19 24 11/23/2023 LIPID PANEL , STAND NIKIA chol/HDLC ratio 3.9 (calc ) <5.0 normal Not Available [address], [address], 11/23/2023 07:07:04 11/22/19 24 11/23/2023 LIPID PANEL , STAND NIKIA non HDL cholesterol 119 mg/dL _(zaida c) <130 normal For patie nts with diabe supriya plus 1 major ASCVD risk facto r, treat ing to a non-H DL-C goal of <100 mg/dL (LDL- C of <70 mg/dL ) is hermes hernandezo n. Not Available [address] [address] [place], [address], 11/23/2023 07:07:04 11/22/19 24 11/23/2023 COMPR EHENS CANDIE METAB OLIC PANEL glucose 95 mg/dL 65-99 normal Fasti ng refer ence inter carlos Not Available [facility] [address] [address] [place], [address], 11/23/2023 07:07:04 11/22/19 24 11/23/2023 COMPR EHENS CANDIE METAB OLIC PANEL urea nitrogen (BUN) 16 mg/dL 7-25 normal Not Available [facility] [address] [address] [place], [address], 11/23/2023 07:07:04 11/22/19 24 11/23/2023 COMPR EHENS CANDIE METAB OLIC PANEL creatinine 0.89 mg/dL 0.70-1 .30 normal Not Available [address], [address], 11/23/2023 07:07:04 11/22/19 24 11/23/2023 COMPR EHENS CANDIE METAB OLIC PANEL eGFR 99 mL/mi n/1.7 3m2 > or = 60 normal Not Available [address], [address], 11/23/2023 07:07:04 11/22/19 24 11/23/2023 COMPR EHENS CANDIE METAB OLIC PANEL BUN/creatini ne ratio SEE NOTE: (calc ) 6-22 Not Repor cadence: BUN and Creat inine are withi n refer ence range . Not Available [address], [address], 11/23/2023 07:07:04 11/22/19 24 11/23/2023 COMPR EHENS CANDIE METAB OLIC PANEL sodium 143 mmol/ L 135-14 6 normal Not Available [address], [address], 11/23/2023 07:07:04 11/22/19 24 11/23/2023 COMPR EHENS CANDIE METAB OLIC PANEL potassium 4.2 mmol/ L 3.5-5. 3 normal Not Available [address], [address], 11/23/2023 07:07:04 11/22/19 24 11/23/2023 COMPR EHENS CANDIE METAB OLIC PANEL chloride 109 mmol/ L 98-110 normal Not Available [address], [address], 11/23/2023 07:07:04 11/22/19 24 11/23/2023 COMPR EHENS CANDIE METAB OLIC PANEL carbon dioxide 27 mmol/ L 20-32 normal Not Available [address], [address], 11/23/2023 07:07:04 11/22/19 24 11/23/2023 COMPR EHENS CANDIE METAB OLIC PANEL calcium 9.0 mg/dL 8.6-10 .3 normal Not Available [address], [address], 11/23/2023 07:07:04 11/22/19 24 11/23/2023 COMPR EHENS CANDIE METAB OLIC PANEL protein, total 6.5 g/dL 6.1-8. 1 normal Not Available [address], [address], 11/23/2023 07:07:04 11/22/19 24 11/23/2023 COMPR EHENS CANDIE METAB OLIC PANEL albumin 4.4 g/dL 3.6-5. 1 normal Not Available [address], [address], 11/23/2023 07:07:04 11/22/19 24 11/23/2023 COMPR EHENS CANDIE METAB OLIC PANEL globulin 2.1 g/dL_ (calc ) 1.9-3. 7 normal Not Available [address], [address], 11/23/2023 07:07:04 11/22/19 24 11/23/2023 COMPR EHENS CANDIE METAB OLIC PANEL albumin/glob ulin ratio 2.1 (calc ) 1.0-2. 5 normal Not Available [address], [address], 11/23/2023 07:07:04 11/22/19 24 11/23/2023 COMPR EHENS CANDIE METAB OLIC PANEL bilirubin, total 0.6 mg/dL 0.2-1. 2 normal Not Available [address], [address], 11/23/2023 07:07:04 11/22/19 24 11/23/2023 COMPR EHENS CANDIE METAB OLIC PANEL alkaline phosphatase 57 U/L 35-144 normal Not Available [address], [address], 11/23/2023 07:07:04 11/22/19 24 11/23/2023 COMPR EHENS CANDIE METAB OLIC PANEL AST 17 U/L 10-35 normal Not Available [address], [address], 11/23/2023 07:07:04 11/22/19 24 11/23/2023 COMPR EHENS CANDIE METAB OLIC PANEL ALT 15 U/L 9-46 normal Not Available [address], [address], 11/23/2023 07:07:04 05/28/20 24 05/29/2024 LIPID PANEL , STAND NIKIA cholesterol, total 178 mg/dL <200 normal Not Available [address], [address], 05/29/2024 12:32:17 05/28/20 24 05/29/2024 LIPID PANEL , STAND NIKIA HDL cholesterol 42 mg/dL > or = 40 normal Not Available [address], [address], 05/29/2024 12:32:17 05/28/20 24 05/29/2024 LIPID PANEL , STAND NIKIA triglyceride s 118 mg/dL <150 normal Not Available [address], [address], 05/29/2024 12:32:17 05/28/20 24 05/29/2024 LIPID PANEL , STAND NIKIA LDL-choleste rol 113 mg/dL _(zaida c) high Refer ence range : <100 Arianne able range <100 mg/dL for prima ry preve ntion ; <70 mg/dL for patie nts with CHD or diabe tic patie nts with > or = 2 CHD risk facto rs. LDL-C is now calcu lated using the Chrissy n-Hop kins calcu palakvianca n, which is a valid ated novel metho d provi ding otilia r accur acy than the Fried ju equat ion in the estim ation of LDL-C . Chrissy cabello SS et al. WALLACE. 2013; 310(1 9): 2061- 2068 (http ://ed ucati on.Qu estAlantos Pharmaceuticals. com/f aq/FA Q164) Not Available [address] [address] [place], [address], 05/29/2024 12:32:17 05/28/20 24 05/29/2024 LIPID PANEL , STAND NIKIA chol/HDLC ratio 4.2 (calc ) <5.0 normal Not Available [address] [address] [facility] [place], [address], 05/29/2024 12:32:17 05/28/20 24 05/29/2024 LIPID PANEL , STAND NIKIA non HDL cholesterol 136 mg/dL _(zaida c) <130 high For patie nts with diabe supriya plus 1 major ASCVD risk facto r, treat ing to a non-H DL-C goal of <100 mg/dL (LDL- C of <70 mg/dL ) is consi gila hurt optio n. Not Available [address] [address] [place], [address], 05/29/2024 12:32:17 05/28/20 24 05/29/2024 COMPR EHENS CANDIE METAB OLIC PANEL glucose 90 mg/dL 65-99 normal Fasti ng refer ence inter carlos Not Available [address] [address] [place], [address], 05/29/2024 12:32:17 05/28/20 24 05/29/2024 COMPR EHENS CANDIE METAB OLIC PANEL urea nitrogen (BUN) 18 mg/dL 7-25 normal Not Available [address], [address], 05/29/2024 12:32:17 05/28/20 24 05/29/2024 COMPR EHENS CANDIE METAB OLIC PANEL creatinine 0.90 mg/dL 0.70-1 .30 normal Not Available [address], [address], 05/29/2024 12:32:17 05/28/20 24 05/29/2024 COMPR EHENS CANDIE METAB OLIC PANEL eGFR 98 mL/mi n/1.7 3m2 > or = 60 normal Not Available [address], [address], 05/29/2024 12:32:17 05/28/20 24 05/29/2024 COMPR EHENS CANDIE METAB OLIC PANEL BUN/creatini ne ratio SEE NOTE: (calc ) 6-22 Not Repor cadence: BUN and Creat inine are withi n refer ence range . Not Available [address], [address], 05/29/2024 12:32:17 05/28/20 24 05/29/2024 COMPR EHENS CANDIE METAB OLIC PANEL sodium 141 mmol/ L 135-14 6 normal Not Available [address], [address], 05/29/2024 12:32:17 05/28/20 24 05/29/2024 COMPR EHENS CANDIE METAB OLIC PANEL potassium 4.2 mmol/ L 3.5-5. 3 normal Not Available [address], [address], 05/29/2024 12:32:17 05/28/20 24 05/29/2024 COMPR EHENS CANDIE METAB OLIC PANEL chloride 107 mmol/ L 98-110 normal Not Available [address], [address], 05/29/2024 12:32:17 05/28/20 24 05/29/2024 COMPR EHENS CANDIE METAB OLIC PANEL carbon dioxide 27 mmol/ L 20-32 normal Not Available [address], [address], 05/29/2024 12:32:17 05/28/20 24 05/29/2024 COMPR EHENS CANDIE METAB OLIC PANEL calcium 9.4 mg/dL 8.6-10 .3 normal Not Available [address], [address], 05/29/2024 12:32:17 05/28/20 24 05/29/2024 COMPR EHENS CANDIE METAB OLIC PANEL protein, total 6.7 g/dL 6.1-8. 1 normal Not Available [address], [address], 05/29/2024 12:32:17 05/28/20 24 05/29/2024 COMPR EHENS CANDIE METAB OLIC PANEL albumin 4.3 g/dL 3.6-5. 1 normal Not Available [address], [address], 05/29/2024 12:32:17 05/28/20 24 05/29/2024 COMPR EHENS CANDIE METAB OLIC PANEL globulin 2.4 g/dL_ (calc ) 1.9-3. 7 normal Not Available [address], [address], 05/29/2024 12:32:17 05/28/20 24 05/29/2024 COMPR EHENS CANDIE METAB OLIC PANEL albumin/glob ulin ratio 1.8 (calc ) 1.0-2. 5 normal Not Available [address], [address], 05/29/2024 12:32:17 05/28/20 24 05/29/2024 COMPR EHENS CANDIE METAB OLIC PANEL bilirubin, total 0.4 mg/dL 0.2-1. 2 normal Not Available [address], [address], 05/29/2024 12:32:17 05/28/20 24 05/29/2024 COMPR EHENS CANDIE METAB OLIC PANEL alkaline phosphatase 75 U/L 35-144 normal Not Available [address], [address], 05/29/2024 12:32:17 05/28/20 24 05/29/2024 COMPR EHENS CANDIE METAB OLIC PANEL AST 16 U/L 10-35 normal Not Available [address], [address], 05/29/2024 12:32:17 05/28/20 24 05/29/2024 COMPR EHENS CANDIE METAB OLIC PANEL ALT 13 U/L 9-46 normal Not Available [address], [address], 05/29/2024 12:32:17 12/15/19 25 12/15/2024 LIPID PANEL , STAND NIKIA cholesterol, total 192 mg/dL <200 normal Not Available [address], [address], 12/15/2024 04:22:47 12/15/19 25 12/15/2024 LIPID PANEL , STAND NIKIA HDL cholesterol 41 mg/dL > or = 40 normal Not Available [address], [address], 12/15/2024 04:22:47 12/15/19 25 12/15/2024 LIPID PANEL , STAND NIKIA triglyceride s 86 mg/dL <150 normal Not Available [address], [address], 12/15/2024 04:22:47 12/15/19 25 12/15/2024 LIPID PANEL , STAND NIKIA LDL-choleste rol 132 mg/dL _(zaida c) high Refer ence range : <100 Arianne able range <100 mg/dL for prima ry preve ntion ; <70 mg/dL for patie nts with CHD or diabe tic patie nts with > or = 2 CHD risk facto rs. LDL-C is now calcu lated using the Chrissy n-Hop kins calcu latio n, which is a valid ated novel metho d provi ding otilia r accur acy than the Fried ju equat ion in the estim ation of LDL-C . Chrissy cabello SS et al. WALLACE. 2013; 310(1 9): 2061- 2068 (http ://ed ucati on.Qu [employer] ([employer]). com/f aq/FA Q164) Not Available [facility] [address] [place], [address], 12/15/2024 04:22:47 12/15/19 25 12/15/2024 LIPID PANEL , STAND NIKIA chol/HDLC ratio 4.7 (calc ) <5.0 normal Not Available [facility] [address] [place], [address], 12/15/2024 04:22:47 12/15/1912/15/2024 LIPID PANEL , STAND NIKIA non HDL cholesterol 151 mg/dL _(zaida c) <130 high For patie nts with diabe supriya plus 1 major ASCVD risk facto r, treat ing to a non-H DL-C goal of <100 mg/dL (LDL- C of <70 mg/dL ) is consi gila clarke c optio n. Not Available [facility] [address] [place], [address], 12/15/2024 04:22:47 12/15/19 25 12/15/2024 COMPR EHENS CANDIE METAB OLIC PANEL glucose 91 mg/dL 65-99 normal Fasti ng refer ence inter carlos Not Available [address], [address], 12/15/2024 04:22:48 12/15/19 25 12/15/2024 COMPR EHENS CANDIE METAB OLIC PANEL urea nitrogen (BUN) 24 mg/dL 7-25 normal Not Available [address], [address], 12/15/2024 04:22:48 12/15/19 25 12/15/2024 COMPR EHENS CANDIE METAB OLIC PANEL creatinine 1.11 mg/dL 0.70-1 .30 normal Not Available [address], [address], 12/15/2024 04:22:48 12/15/19 25 12/15/2024 COMPR EHENS CANDIE METAB OLIC PANEL eGFR 76 mL/mi n/1.7 3m2 > or = 60 normal Not Available [address], [address], 12/15/2024 04:22:48 12/15/19 25 12/15/2024 COMPR EHENS CANDIE METAB OLIC PANEL BUN/creatini ne ratio SEE NOTE: (calc ) 6-22 Not Repor cadence: BUN and Creat inine are withi n refer ence range . Not Available [address], [address], 12/15/2024 04:22:48 12/15/19 25 12/15/2024 COMPR EHENS CANDIE METAB OLIC PANEL sodium 141 mmol/ L 135-14 6 normal Not Available [address], [address], 12/15/2024 04:22:48 12/15/19 25 12/15/2024 COMPR EHENS CANDIE METAB OLIC PANEL potassium 3.9 mmol/ L 3.5-5. 3 normal Not Available [address] [place], [address], 12/15/2024 04:22:48 12/15/19 25 12/15/2024 COMPR EHENS CANDIE METAB OLIC PANEL chloride 104 mmol/ L 98-110 normal Not Available [address], [address], 12/15/2024 04:22:48 12/15/19 25 12/15/2024 COMPR EHENS CANDIE METAB OLIC PANEL carbon dioxide 27 mmol/ L 20-32 normal Not Available [facility] [address], [address], 12/15/2024 04:22:48 12/15/19 25 12/15/2024 COMPR EHENS CANDIE METAB OLIC PANEL calcium 9.2 mg/dL 8.6-10 .3 normal Not Available [address], [address], 12/15/2024 04:22:48 12/15/19 25 12/15/2024 COMPR EHENS CANDIE METAB OLIC PANEL protein, total 6.6 g/dL 6.1-8. 1 normal Not Available [address], [address], 12/15/2024 04:22:48 12/15/19 25 12/15/2024 COMPR EHENS CANDIE METAB OLIC PANEL albumin 4.5 g/dL 3.6-5. 1 normal Not Available [address], [address], 12/15/2024 04:22:48 12/15/19 25 12/15/2024 COMPR EHENS CANDIE METAB OLIC PANEL globulin 2.1 g/dL_ (calc ) 1.9-3. 7 normal Not Available [facility] [address], [address], 12/15/2024 04:22:48 12/15/19 25 12/15/2024 COMPR EHENS CANDIE METAB OLIC PANEL albumin/glob ulin ratio 2.1 (calc ) 1.0-2. 5 normal Not Available [address], [address], 12/15/2024 04:22:48 12/15/19 25 12/15/2024 COMPR EHENS CANDIE METAB OLIC PANEL bilirubin, total 0.8 mg/dL 0.2-1. 2 normal Not Available [address], [address], 12/15/2024 04:22:48 12/15/1912/15/2024 COMPR EHENS CANDIE METAB OLIC PANEL alkaline phosphatase 69 U/L 35-144 normal Not Available [facility] [employer] [address], [address], 12/15/2024 04:22:48 12/15/19 25 12/15/2024 COMPR EHENS CANDIE METAB OLIC PANEL AST 19 U/L 10-35 normal Not Available [address], [address], 12/15/2024 04:22:48 12/15/19 25 12/15/2024 COMPR EHENS CANDIE METAB OLIC PANEL ALT 15 U/L 9-46 normal Not Available [address], [address], 12/15/2024 04:22:48 12/15/1912/15/2024 PSA, TOTAL PSA, total 1.34 NG/mL < or = 4.00 normal The total PSA value from this assay syste m is stand ardiz ed again st the WHO stand nikia. The test resul t will be appro ximat priti 20% lower when hans red to the equim olar- stand ardiz ed total PSA ([place] man Coul[facility] er). Hans rison of seria l PSA resul ts shoul d be inter prete d with this fact in mind. This test was perfo rmed using the [employer] ns chemi lumin escen t metho d. Value s obtai kaylah from diffe rent assay metho ds canno t be used inter taylor eably . PSA level s, regar dless of value , shoul d not be inter prete d as absol [place] evide nce of the prese nce or absen ce of disea se. Not Available [facility] [address] [place], [address], 12/15/2024 04:22:50 Result Notes None recorded. Problems Name Problem SNOMED Code Status Onset Date Resolution Date Notes Provider Name and Address Organization Details Recorded Time Cough 17449708 Completed 202205/31/2023 COUGH; Recorded 3 7:50AM by Johanna James, Office Visit; Promoted; acuity set as *; LORNA valencia [facility] 3 22:12:59 Acute bronchiti s 40677550 Completed 202205/31/2023 ACUTE BRONCHITI S; Recorded 3 7:50AM by Johanna James, Office Visit; Promoted; acuity set as *; LORNA valencia [facility] 3 22:12:59 Essential hypertens ion 22411431 Active 2022 JOHANNA valencia [facility] 3 09:16:07 Hyperlipi demia 61863605 Active 2024 [facility] 5 08:35:48 Problem Notes None recorded. Procedures Surgical History Date Name Laterality Status Provider Name and Address Organization Details Recorded Time 2005 Hernia Repair completed JOHANNA JAMES [facility] 11/18/2022 09:17:20 Imaging Results None recorded. Procedure Notes None recorded. Medical Equipment None Reported. Allergies No known drug allergies Medications Name Sig Start Date Stop Date Status Note LastModified by Organization Details LastModified Time cyclobenz aprine 10 mg tablet TAKE 1 TABLET BY MOUTH UP TO THREE TIMES DAILY NEEDED FOR MUSCLE SPASM 11/18 completed Not Available Not Available Not Available metoprolo l succinate ER 50 mg tablet,ex tended release 24 hr TAKE 1 TABLET BY MOUTH EVERY EVENING 11/18 completed Not Available Not Available Not Available hydrocodo ne 5 mg-acetam inophen 325 mg tablet TAKE 1 TABLET BY MOUTH EVERY 4-6 HOURS NEEDED FOR PAIN active Not Available Not Available No t Available prednison e 20 mg tablet TAKE 1 TABLET BY MOUTH DAILY 11/18 completed Not Available Not Available Not Available oxycodone -acetamin ophen 10 mg-325 mg tablet TAKE 1 TABLET BY MOUTH EVERY 6 HOURS NEEDED FOR PAIN 11/18 completed Not Available Not Available Not Available amlodipin e 10 mg tablet TAKE 1 TABLET BY MOUTH DAILY active Not Available Not Available No t Available promethaz ine 25 mg tablet TAKE 1 TABLET BY MOUTH EVERY 6 HOURS NEEDED 11/18 completed Not Available Not Available Not Available lisinopri l 40 mg tablet TAKE 1 TABLET BY MOUTH DAILY active Not Available Not Available No t Available amoxicill in 875 mg-potass ium clavulana te 125 mg tablet TAKE 1 TABLET BY MOUTH EVERY 12 HOURS FOR 10 DAYS 11/28 completed Not Available Not Available Not Available escitalop rocío 10 mg tablet TAKE 1 TABLET BY MOUTH DAILY 06/01 completed Not Available Not Available Not Available lisinopri l daily 06/01 completed RM/AV; 9; Recorded 08/06/20 22 2:30PM by Michelle cabello (Authori zed through Curly Mathews MD), Sheriati on/Adden dum; Refill Quantity : 30; Tablet; Not Available Not Available Not Available hydrochlo rothiazid e 12.5 mg tablet TAKE 1 TABLET BY MOUTH EVERY MORNING FOR BLOOD PRESSURE 12/18 completed Not Available Not Available Not Available amlodipin e besylate (bulk) daily 06/01 completed DM/sd; 025[address]; Recorded 09/09/19 12:45PM by Lorna Martin (Authori zed through Isac Ornelas DO), Annotati on/Adden dum; Refill Quantity : 90; Tablet; Not Available Not Available Not Available Vitals Date Recorded Body mass index (BMI) Body weight Oxygen saturation Oxygen saturation in Arterial blood by Pulse oximetry Heart rate Respiratory rate Systolic And Diastolic Provider Name and Address Organization Details Last Updated DateTime 4 30.2 kg/m2 294475. 21 g 95 % 95 % 58 /min 20 /min 130/90 mm[Hg] JOHANNA LULU [facility] 4 08:34:54 Date Recorded Body height Provider Name an d Address Organization Details Last Updated DateTime 11/29/2023 187.96 cm Shaneka Quigley [facility] 11/29/2023 08:22:19 Date Recorded Body height Body mass index (BMI) Body weight Oxygen saturation Oxygen saturation in Arterial blood by Pulse oximetry Heart rate Respiratory rate Systolic And Diastolic Provider Name and Address Organization Details Last Updated DateTime 5 187.96 cm 30.3 kg/m2 683817. 9 g 97 % 97 % 71 /min 18 /min 106/60 mm[Hg] Shaneka Quigley [facility] 5 08:13:54 Date Recorded Body height Body mass index (BMI) Body weight Oxygen saturation Oxygen saturation in Arterial blood by Pulse oximetry Heart rate Systolic And Diastolic Provider Name and Address Organization Details Last Updated DateTime 4 187.96 cm 30.3 kg/m2 106311. 2 g 97 % 97 % 64 /min 126/80 mm[Hg] Shaneka Quigley [facility] 4 08:26:06 Social History Question Answer Notes LastModified by Organizat ion Details LastModified Time Tobacco Smoking Status Never Smoker JOHANNA LULU [facility] 11/29/2023 08:36:07 What Was The Date Of Your Most Recent Tobacco Screening? 11/29/2023 Information not available 11/29/2023 What Is Your Relationship Status? [email or web address] Information not available 11/11/2022 Are You Sexually Active? Yes [email or web address] Information not available 11/11/2022 Sex: Unknown Functional Status Question Answer Note LastModified by Organizat ion Details LastModified Time Do you use any illicit or recreational drugs? No [email or web address] Information not available 11/18/2022 Do you or have you ever used any other forms of tobacco or nicotine? No [email or web address] Information not available 11/18/2022 What is your level of alcohol consumption? None [email or web address] Information not available 11/18/2022 Mental Status None recorded. Family History Relationship Description Onset Age of this Age Resolved Age Notes LastModified by Organization Details LastModified Time Mother Familial cancer of breast [email or web address] Not available 11/11 14:09:40 Father Heart disease [email or web address] Not available 11/11 14:10:01 Medical History Condition Response Bladder or Kidney Problems Y Hypertension Y Past Encounters Encounter ID Performer Location Encounter Start Date Encounter Closed Date Diagnosis/Indication Diagnosis SNOMED-CT Code Diagnosis ICD10 Code Diagnosis IMO Codes Diagnosis Note [id number] Isac Ornelas DO [facility] ([facility]) [address] [place] [address] 5 11/18/2022 09:04:27 11/18/2022 09:40:49 Essential hypertension 77130320 I10 much improved with addtion of medication . continue current meds. amlodipine , HCTZ, lisinopirl . f/u 6 mt [id number] Isac Ornelas DO [facility] [address] [place] [address] 5 06/01/2023 08:14:34 06/01/2023 13:35:07 Essential hypertension 52307763 I10 much improved. no symptoms. continue current meds. amlodipine , HCTZ, lisinopril . f/u 6 mt [id number] RONALD CUMMINS [facility] ([facility]) [address] [place] [address] 5 06/17/2023 18:15:41 06/17/2023 19:22:24 Foreign body - finger 272342241 S60.458A Splinter removed from under nail, patient tolerated well. [id number] Isac Ornelas DO [facility] ([facility]) [address] [place] [phone] 5 11/29/2023 08:02:39 12/03/2023 16:04:49 Essential hypertension 64608367 I10 much improved. no symptoms. continue current meds. amlodipine , HCTZ, lisinopril . f/u 6 mt Adult heal th examination 131439177 Z00.00 I counseled patient on diet, exercise, weight, and mental health. We discussed appropriat e cancer screenings . All questions were addressed. I reviewed recent labs prior to visit and discussed recent labs/studi es with pt during this visit. Pt is encouraged to utilized the portal. all questions were addressed. f/u every 12 mts for annual wellness visits. [id number] Isac DO Johnson [facility] ([facility]) [address] [place] [address] [phone] 05/28/2024 09:22:19 05/29/2024 11:53:07 Adult health examination [id number] Z00.00 I counseled patient on diet, exercise, weight, and mental health. We discussed appropriat e cancer screenings . All questions were addressed. I reviewed recent labs prior to visit and discussed recent labs/studi es with pt during this visit. Pt is encouraged to utilized the portal. all questions were addressed. f/u every 12 mts for annual wellness visits. [id number] Isac DO Johnson [facility] ([facility]) [address] [place] [address] [phone] 5 05/30/2024 08:12:04 05/30/2024 08:53:03 Essential hypertension 19384109 I10 much improved. no symptoms. continue current meds. amlodipine , HCTZ, lisinopril . f/u 6 mt [id number] Isaccrispin OrnelasDO [facility] ([facility]) [address] [place] [phone] 5 12/14/2024 08:33:22 12/15/2024 09:12:49 Essential hypertension 49104126 I10 much improved. no symptoms. continue current meds. amlodipine , HCTZ, lisinopril . f/u 6 mt Screening for malignant neoplasm of prostate 364235099 Z12.5 [id number] Isac Ornelas DO [facility] ([facility]) [address] [place] [address] 12/18/2024 08:04:01 12/18/2024 08:41:59 Essential hypertension 55866348 I10 12/18/24: BP running lower than we want it to today, counseled stop HCTZ. Continue Amlodipine and Lisinopril . Monitor BP regularly and if having symptoms, call if running low. Hyperlipidemia 86179098 E78.5 [id number] 12/18/24: Reviewed and discussed recent lipid panel, deteriorat ed, counseled on diet, exercise, no med today, will recheck in 6 months. Adult heal th examination 453029298 Z00.00 [id number] I counseled patient on diet, exercise, weight, and mental health. We discussed appropriat e cancer screenings . All questions were addressed. I reviewed recent labs prior to visit and discussed recent labs/studi es with pt during this visit. Pt is encouraged to utilized the portal. all questions were addressed. f/u every 12 mts for annual wellness visits. Health Concerns Section Related Observation LastModified by Organization Detai ls LastModified Time None Recorded Concern Status LastModified by Organization Details LastModified Time None Recorded Advance Directives Directive None Recorded Payers Insurance Date Sequence Insurance Name Policy Number Policy Ruff Covered Member ID Ruff Member ID Guarantor Name 11/29/2023 1 [facility] Hollis L Surface [id number] Hollis L Surface 11/29/2023 1 *SELF PAY* Ma rk L Surface 11/29/2023 1 *SELF PAY* Ny rk L Surface Notes Date Note Type Note Provider Name and Address Organization Details Recorded Time 11/29/2023 text/html Hypertension IM/FMReported by PatientHPIFor severity, patient reportsstage 1 (130-139/80-89 mmhg). For quality, patient reportshere for check-up. For onset/timing, patient reportsgradual onset. For alleviating factors, patient reportsrelieved with restandmedication. For self care, patient reportsnot under emotional stressandnon-smoker. For associated symptoms, patient reportsno shortness of breath,no palpitations,no tingling,no headaches,no loss of vision, andno chest pain.ROS as noted in the HPI 6mth f/u for HTN and needing wellness exam.He is tolerating amlodipine and lisinopril as well as HCTZ.bp at [place] running 130s/80s. The patient feels well with no complaints, has good energy level and is sleeping well. Nutrition: balanced diet. Patient exercises every other day. The patient denies any recent severe acute illness or hospitalizations or ER visits. The patient denies any recent medication changes and is tolerating meds well, taking them as prescribed. Isac Ornelas [address] [place] [address], [phone], [facility] 12/01/2023 17:10:14 05/30/2024 text/html ROS as noted in the HPI pt presents for recheck 6mth chronic illness , HTN, last labs done on 05/28/24, CMP wnl'scholesterol 178, trigs 118, Hdl 42, Ldl 113 He is tolerating amlodipine and lisinopril as well as HCTZ.he has not been checking his bp at home states he feels good so he doesn't mess with itc/o sleep problems but does not want to take any med for it The patient feels well with no complaints, has good energy level and is sleeping well. Nutrition: balanced diet. Patient exercises every other day. The patient denies any recent severe acute illness or hospitalizations or ER visits. The patient denies any recent medication changes and is tolerating meds well, taking them as prescribed. Isac Ornelas [address] [place] [address], [phone], [facility] 08/20/2024 08:48:51 12/18/2024 text/html ROS as noted in the HPI Pt presents for annual wellness, visit, 6 month recheck HTN. labs done on 12/14/24: PSA 1.34, CMP wnl'scholesterol 192, trigs 86, Hdl 41, Ldl 132 ( this is increased vs prior). He is tolerating amlodipine and lisinopril as well as HCTZ.He has not been checking his bp at home, states he feels good so he doesn't mess with itBP 106/60 in clinic this am, pt denies any symptoms. Rechecked at 118/60. C/o sleep problems but does not want to take any med for it [facility] pleased with this.Concern his bad teeth were effecting his blood pressure previously. No routine exercise. 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 Also reports increased fatigue by the end of a work day.He reports he keeps good work boots, however not using inserts. The patient feels well with no complaints, has good energy level. Nutrition: balanced diet. Patient exercises every other day. The patient denies any recent severe acute illness or hospitalizations or ER visits. The patient denies any recent medication changes and is tolerating meds well, taking them as prescribed. Isac Ornelas, DO [address] [place] [address], [phone], [facility], [facility] 01/02/2025 00:11:36
--- OUTSIDE RECORDS SUMMARY | 2025-06-18 03:02 | XMS_ITS | Encounter Summary ---
Author Organization [facility] Address [address] [place] [address] Care Team Providers Care Wax Ball Molder Name Role Phone Anil Hinton MD, Felipe Brewer Primary Care Provider +1 [phone] Encounter Details Date Type Department Care Team (Latest Contact Info) Description 02/02/2000 Outpatient Historical [facility] Internal Medicine[place] [address] [facility] [address] [place] [address] Felipe Ma Jr., MD [address] [facility] [address] [place] [address] Cellulitis and abscess of unspecified site (Primary Dx) Social History Tobacco Use Types Packs/Day Years Used Date Smoking Tobacco: Never Assessed Sex and Gender Information Value Date Recorded Sex Assigned at Not on file 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
--- OUTSIDE RECORDS SUMMARY | 2025-06-18 03:02 | XMS_ITS | Encounter Summary ---
Author Organization [facility] Address [address] [place] [address] Care Team Providers Care Passenger Barge Master Name Role Phone Anil Hinton MD, Felipe Brewer Primary Care Provider +1 [phone] Encounter Details Date Type Department Care Team (Latest Contact Info) Description 03/21/1998 Outpatient Historical [facility] Internal Medicine-[place] [address] [facility] [address] [place] [address] Felipe Ma Jr., MD [address] [facility] [address] [place] [address] Cellulitis and abscess of finger, unspecified (Primary Dx); Unspecified asthma(493.90) Social History Tobacco Use Types Packs/Day Years Used Date Smoking Tobacco: Never Assessed Sex and Gender Information Value Date Recorded Sex Assigned at Not on file 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
--- OUTSIDE RECORDS SUMMARY | 2025-06-18 03:02 | XMS_ITS | Encounter Summary ---
Author Organization [facility] Address [address] [place] [address] Care Team Providers Care Banquet Lead Name Role Phone Anil Hinton MD, Felipe Brewer Primary Care Provider [phone] [phone] Encounter Details Date Type Department Care Team (Latest Contact Info) Description 10/24/2001 Outpatient Historical [facility] [address] [facility] [address] [place] [address] Felipe Ma Jr., MD [address] [facility] [address] [place] [address] CHEST PAIN NOS (Primary Dx); REFLUX ESOPHAGITIS Social History Tobacco Use Types Packs/Day Years Used Date Smoking Tobacco: Never Assessed Sex and Gender Information Value Date Recorded Sex Assigned at Not on file 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
--- OUTSIDE RECORDS SUMMARY | 2025-06-18 03:02 | XMS_ITS | Encounter Summary ---
Author Organization [facility] Address [address] [facility] [address] [facility] [address] 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
--- OUTSIDE RECORDS SUMMARY | 2025-06-18 03:03 | XMS_ITS | Patient Health Record ---
Author Organization [employer] Address [address] [place] [address] Care Team Providers Care Deckhand Maintenance Name Role Phone Isac Ornelas Primary Care Provider YOLETTE Salvador Unavailable [phone] SHELLIE VUONG Unavailable [phone] Allergies No Known Allergies Results Component Value Reference Range Notes Urinalysis, Routine Reviewed date:07/09/2024 08:55:02 AM Interpretation: Performing Lab: Notes/Report: Urine-Color yellow Appearance clear Glucose - Bilirubin - Ketones - Specific [place] 1.015 Occult Blood - pH 6.0 Urine Protein - Urobilinogen,Semi-Qn - Nitrite, Urine - WBC Esterase - Urinalysis Gross Exam - Reason For Referral No Information Medications Medication SIG (Take, Route, Frequency, Duration) Notes Start Date End Date Status Flomax *Pick strength-form from Medispan for eRX* Not-Taking Lisinopril *Pick strength-form from Medispan for eRX* Active amLODIPine Besylate *Pick strength-form from Medispan for eRX* Active Problems Problem Type SNOMED Code ICD Code Onset Dates Problem Status W/U Status Risk Notes Problem Renal calculus (73906414) Renal calculus (N20.0) Active confirmed Problem Nephrolithiasis (14111646) Nephrolithiasis (N20.0) Active confirmed Problem Ureteral stone (09414223) Ureteral stone (N20.1) Active confirmed Problem Hydronephrosis (95079665) Hydronephrosis, left (N13.30) Active confirmed Problem Hydronephrosis with ureteral calculus (N13.2) Active confirmed Problem Kidney stone (68085352) Bilateral nephrolithiasis (N20.0) Active confirmed Problem Ureteric stone (72078250) Calculus of proximal left ureter (N20.1) Active confirmed Problem Renal cyst (672092605) Renal cyst (N28.1) Active confirmed Problem History of nephrolithiasis (698353406) History of nephrolithiasis (Z87.442) Active confirmed Vital Signs Heart Rate 61 /min 07/09/2024 Blood pressure diastolic 81 mm Hg 07/09/2024 Height-cm 187.96 cm 07/09/2024 Weight-kg 106.59 kg 07/09/2024 Height 74 in 07/09/2024 Blood pressure systolic 140 mm Hg 07/09/2024 Weight 235 lbs 07/09/2024 BMI 30.17 kg/m2 07/09/2024 Encounters Encounter Location Date Provider Diagnosis [facility] [address] [place] [address] 07/09/2024 SHELLIE VUONG Weak urine stream R3 9.12 ; History of nephrolithiasis Z87.442 ; Family history of prostate problems Z84.2 ; Nocturia R35.1 and Screening for prostate cancer Z12.5 Assessments Encounter Date Diagnosis (ICD Code) Assessment Notes Treatment Notes Treatment Clinical Notes Section Notes 07/09/2024 Weak urine stream (ICD-10 - R39.12) 07/09/2024 History of nephrolithiasis (ICD-10 - Z87.442) 07/09/2024 Family history of prostate problems (ICD-10 - Z84.2) 07/09/2024 Nocturia (ICD-10 - R35.1) 07/09/2024 Screening for prostate cancer (ICD-10 - Z12.5) 07/09/2024 Other KUB at [facility] on 07/06/24 reveals no nephrolithiasis per report. No images available. He denies hematuria or flank pain since last visit. Continue with stone prevention dietary measures. PSA annually with PCP, have always been normal per patient. RTC in 1 year with KUB, UA/PVR and PSA. All questions that were asked were answered. Patient satisfied with plan of care. Plan Of Treatment Pending Test Test Name Order Date KUB, X-Ray: Abdomen, Kidney, Urete r, bladder 05/19/2024 [id number] KUB, X-Ray: Abdomen, Kidney, Urete r, bladder 06/17/2025 X ray : Abdomen, Kidneys, Ureters, and B ladder (KUB) with upright films 06/30/2023 Future Test Test Name Order Date Abdomen [id number] 07/13/2022 Next Appt Details Provider Name:SHELLIE VUONG, 1 09/14/2024 08:20:00 AM, [address] [place], [address], Medical (General) History Medical History History ICD Code hypertension Surgical History Surgery Date(Month/Year) hernia repair
--- OUTSIDE RECORDS SUMMARY | 2025-06-18 03:03 | XMS_ITS | Encounter Summary ---
Author Organization [facility] Address [address] [place] [address] Care Team Providers Care Roll Grinder Name Role Phone Anil Hinton MD, Felipe Brewer Primary Care Provider [phone] [phone] Encounter Details Date Type Department Care Team (Latest Contact Info) Description 07/16/2005 Outpatient Historical [facility] Internal Medicine[place] [address] [facility] [address] [place] [address] Felipe Ma Jr., MD [address] [facility] [address] [place] [address] ABDOMINAL PAIN UNSPEC SITE (Primary Dx) Social History Tobacco Use Types Packs/Day Years Used Date Smoking Tobacco: Never Assessed Sex and Gender Information Value Date Recorded Sex Assigned at Not on file 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
--- OUTSIDE RECORDS SUMMARY | 2025-06-18 03:03 | XMS_ITS | Encounter Summary ---
Author Organization [facility] Address [address] [place] [address] Care Team Providers Care Yacht Builder Name Role Phone Anil Hinton MD, Felipe Brewer Primary Care Provider [phone] [phone] Encounter Details Date Type Department Care Team (Latest Contact Info) Description 12/13/2006 Outpatient Historical [facility] Internal Medicine-[place] [address] [facility] [address] [place] [address] Felipe Ma Jr., MD [address] [facility] [address] [place] [address] Unspecified Essential Hypertension (Primary Dx); Reflux Esophagitis Social History Tobacco Use Types Packs/Day Years Used Date Smoking Tobacco: Never Assessed Sex and Gender Information Value Date Recorded Sex Assigned at Not on file 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
--- OUTSIDE RECORDS SUMMARY | 2025-06-18 03:03 | XMS_ITS | Encounter Summary ---
Author Organization [facility] Address [address] [place] [address] Care Team Providers Care Remote Control Assembler Name Role Phone Anil Hinton MD, Felipe Brewer Primary Care Provider +1 [phone] Encounter Details Date Type Department Care Team (Latest Contact Info) Description 07/16/2005 Outpatient Historical [facility] Imaging Services-[place] [address] [place] [address] Felipe Ma Jr., MD [address] [place] [address] MALE GENITAL DIS NEC (Primary Dx) Social History Tobacco Use Types Packs/Day Years Used Date Smoking Tobacco: Never Assessed Sex and Gender Information Value Date Recorded Sex Assigned at Not on file 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
--- OUTSIDE RECORDS SUMMARY | 2025-06-18 03:03 | XMS_ITS | Encounter Summary ---
Author Organization [facility] Address [address] [place] [address] Care Team Providers Care Field Laborer Name Role Phone Anil Hinton MD, Felipe Brewer Primary Care Provider [phone] [phone] Encounter Details Date Type Department Care Team (Latest Contact Info) Description 11/14/2006 Outpatient Historical [facility] Internal Medicine-[place] [address] [place] [address] Dulce Maria Samayoa, JAGDEEP [address] [facility] [address] [place] [address] Headache (Primary Dx) Social History Tobacco Use Types Packs/Day Years Used Date Smoking Tobacco: Never Assessed Sex and Gender Information Value Date Recorded Sex Assigned at Not on file 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
--- OUTSIDE RECORDS SUMMARY | 2025-06-18 03:03 | XMS_ITS | Encounter Summary ---
Author Organization [facility] Address [address] [place] [address] Care Team Providers Care Pipelines Laborer Name Role Phone Anil Hinton MD, Felipe Brewer Primary Care Provider +1 [phone] Encounter Details Date Type Department Care Team (Latest Contact Info) Description 10/31/[address] 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
--- OUTSIDE RECORDS SUMMARY | 2025-06-18 03:03 | XMS_ITS | Patient Health Record ---
Author Organization [facility] Address [address] [place] [address] Care Team Providers Care Health Education Director Name Role Phone Isac Ornelas DO Primary Care Provider Unavail Wagner Berry Unavailable [phone] Allergies No Known Allergies Reason For Referral No Information Medications Medication SIG (Take, Route, Fr equency, Duration) Notes Start Date End Date Status Lisinopril Active Flomax Active amLODIPine Besylate Active Social History Tobacco Use: Social History Observation Description Date Details (start date - stop date) Never Smoker NA - NA Social History Tobacco Use: Social Info Question Answer Notes xTobacco Use/Smoking Are you a nonsmoker Problems Problem Type SNOMED Code ICD Code Onset Dates Problem Status W/U Status Risk Notes Problem Nephrolithiasis (52122971) Nephrolithiasis (N20.0) Active confirmed Problem Renal cyst (952180172) Renal cyst (N28.1) Active confirmed Problem Ureteral stone (64584140) Ureteral stone (N20.1) Active confirmed Problem Kidney stone (15981496) Bilateral nephrolithiasis (N20.0) Active confirmed Problem History of nephrolithiasis (809893715) History of nephrolithiasis (Z87.442) Active confirmed Problem Hydronephrosis (17433243) Hydronephrosis, left (N13.30) Active confirmed Problem Renal calculus (N20.0 ) Active confirmed Problem Hydronephrosis with ureteral calculus (N13.2) Active confirmed Problem Ureteric stone (47750878) Calculus of proximal left ureter (N20.1) Active confirmed Plan Of Treatment No Information Medical (General) History Medical History History ICD Code hypertension Surgical History Surgery Date(Month/Year) hernia repair
[2025-06-18 03:13] VITALS: BP 173/96; PULSE 74; RESP 20; TEMP 36.6; O2SAT 97; BMI 30.2
[2025-06-18 03:17] VITALS: BP 173/96; PULSE 74; RESP 20; TEMP 36.6; O2SAT 97
--- NOTE | 2025-06-18 03:30 | W.ED.GENADLT ---
HPI - General Adult General: Chief complaint: Abdominal Pain Stated complaint: Possible Kidney stone, N/V Time Seen by Provider: 06/18/25 03:27 History of Present Illness: 60yo M w/cc of pain due to kidney stone. He was diagnosed yesterday with CT imaging showing: IMPRESSION: 1. 2.3 mm obstructing LEFT proximal ureteral calculus. Distal LEFT ureter is decompressed. Slight induration about the LEFT kidney. 2. Extensive bilateral peripelvic renal cysts similar to previous. 3. A few nonobstructing RIGHT calyceal tip calculi. 4. Moderate esophageal hiatal hernia. 5. 9 mm pleural based nodule in the lingula. Recommend chest CT follow-up. 6. Enlarged prostate. Recommend correlation PSA. Patient returns today for uncontrolled pain at home. He states that he has been nauseated and vomiting and unable to keep his medications down. Patient states he has not had a fever, denies chest pain, shortness of breath. He states he has pain in his left lower quadrant. Patient states he has had a little bit of hematuria this morning. Symptoms started yesterday and were not preceded by fever, chills, malaise, dysuria or increased frequency. Related Data Previous Rx's ?Medication ?Instructions ?Recorded promethazine 25 mg tablet 25 mg PO Q6H PRN nausea and 03/17/21 vomiting #20 tabs tamsulosin 0.4 mg capsule (Flomax) 0.4 mg PO DAILY #90 caps 03/17/21 oxycodone-acetaminophen 10 mg-325 1 tab PO Q4H PRN pain #30 tabs 06/08/22 mg tablet (Percocet) promethazine 25 mg tablet 25 mg PO Q6H PRN nausea and 06/08/22 vomiting #20 tabs tamsulosin 0.4 mg capsule (Flomax) 0.4 mg PO BID #60 caps 06/08/22 ketorolac 10 mg tablet 10 mg PO Q8H PRN pain #20 tabs 06/17/25 ondansetron 4 mg disintegrating 4 mg PO Q8H PRN nausea and 06/17/25 tablet vomiting #20 tabs oxycodone-acetaminophen 5 mg-325 1 tab PO Q8H PRN pain #20 tabs 25 mg tablet (Percocet) promethazine 25 mg rectal 25 mg NM Q6H PRN nausea and 06/18/25 suppository vomiting #12 ea Allergies Allergy/AdvReac Type Severity Reaction Status Date / Time No Known Allergies Allergy Verified 07/13/21 08:39 [facility] ED PFS: Medical History (Updated 06/18/25 @ 05:57 by Debbie Ochoa MD) Left ureteral stone BPH loc w urin obs/LUTS Family History Mother Cancer Breast Father CAD (coronary artery disease) Social History Alcohol intake: never Substance/Drug Use: never Marital status: Current occupational status: employed Physical Exam Narrative: EXAM NARRATIVE: Vital signs were reviewed. Patient is alert and oriented. He appears to be in severe pain. Patient is breathing comfortably, no increased WOB or accessory muscle use. SpO2 is above 95% on RA. Patient has clear lungs b/l, no rhonchi, wheezing or crackles. No hypotension or tachycardia. Abdomen is soft, nondistended. +Tenderness in the LLQ. No significant CVA tenderness w/percussion of the flanks. Patient is moving all extremities, no deformity or gross injury. No lower extremity edema or asymmetry. Course Vital Signs: Vital signs: Vital Signs Temperature 97.9 F 06/18/25 03:17 Pulse Rate 74 06/18/25 03:17 Respiratory Rate 20 H 06/18/25 03:17 Blood Pressure 173/96 06/18/25 03:17 Pulse Oximetry 97 06/18/25 03:17 Oxygen Delivery Me thod Room Air 06/18/25 03:17 MDM - General Adult Medical Decision Making 60-year-old male presenting with a chief complaint of severe uncontrolled pain at home, nausea and vomiting, inability to keep his nausea and pain medication down. He was diagnosed with a kidney stone yesterday. Symptoms started yesterday. Differential diagnosis includes, is limited to, kidney stone, complicating urinary tract infection, uncontrolled pain, other. On exam, patient is hemodynamically stable. Patient is afebrile. He does appear quite uncomfortable and appears to be in severe pain. Patient was treated with IV Dilaudid and a milligrams of Zofran. He was evaluated CBC, BMP, procalcitonin, UA. Patient has a normal white blood cell count that is downtrending from yesterday. He is not anemic. Patient does not have any actionable electrolyte abnormalities. He has normal creatinine and only minimally elevated anion gap. Patient has normal kidney function. UA patient states that he is feeling much better though the pain is starting to come back. He was given a second dose of IV pain medication and IV fluids. Lab Data 06/18/25 03:10 06/18/25 03:10 Laboratory Results WBC 9.01 10^3/uL (3.29-11.43) 06/18/25 03:10 RBC 4.44 10^6/uL (3.85-5.65) 06/18/25 03:10 Hgb 13.90 g/dL (11.27-16.99) 06/18/25 03:10 Hct 39.3 % (37-53) 06/18/25 03:10 MCV 88.5 fl (82-101) 06/18/25 03:10 MCH 31.3 pg (27-33) 06/18/25 03:10 MCHC 35.4 g/dL (30-55) 06/18/25 03:10 RDW 12.6 % (12.1-15.1) 06/18/25 03:10 Plt Count 162 10^3/cmm (157-399) 06/18/25 03:10 MPV 11.1 fL (7.4-10.4) H 06/18/25 03:10 Neut % (Auto) 85.1 % 06/18/25 03:10 Lymph % (Auto) 9.3 % 06/18/25 03:10 Mccreary % (Auto) 5.2 % 06/18/25 03:10 Eos % (Auto) 0.0 % 06/18/25 03:10 Baso % (Auto) 0.1 % 06/18/25 03:10 Neut # (Auto) 7.66 10^3/uL (1.8-7.7) 06/18/25 03:10 Lymph # (Auto) 0.8 10^3/uL (0.8-4.8) 06/18/25 03:10 Mccreary # (Auto) 0.5 10^3/uL (0.2-0.9) 06/18/25 03:10 Eos # (Auto) 0.0 10^3/uL (0.0-0.8) 06/18/25 03:10 Baso # (Auto) 0.0 10^3/uL (0.0-0.1) 06/18/25 03:10 Nucleated RBC % (auto) 0 % 06/18/25 03:10 Nucleated RBCs # 0.0 /100WBC 06/18/25 03:10 Sodium 140 mmol/L (136-145) 06/18/25 03:10 Potassium 4.2 mmol/L (3.5-5.1) 06/18/25 03:10 Chloride 104 mmol/L (98-107) 06/18/25 03:10 Carbon Dioxide 20 mmol/L (22-29) L 06/18/25 03:10 Anion Gap 20.2 (5-19) H 06/18/25 03:10 BUN 18 mg/dL (8-23) 06/18/25 03:10 Creatinine 1.1 mg/dL (0.7-1.2) 06/18/25 03:10 GFR Calculation 68.3 mL/min (90-130) L 06/18/25 03:10 Glucose 142 mg/dL (65-115) H 06/18/25 03:10 Calculated Osmolality 294 mOsm/kg (285-295) 06/18/25 03:10 Calcium 9.0 mg/dL (8.5-10.5) 06/18/25 03:10 Total Bilirubin 0.5 mg/dL (0.15-1.2) 06/18/25 03:10 AST 19 U/L (0-40) 06/18/25 03:10 ALT 15 U/L (0-41) 06/18/25 03:10 Alkaline Phosphatase 79 U/L (40-130) 06/18/25 03:10 Total Protein 6.6 g/dL (6.6-8.7) 06/18/25 03:10 Albumin 4.3 g/dL (3.5-5.2) 06/18/25 03:10 Globulin 2.3 g/dL (1.3-4.6) 06/18/25 03:10 Procalcitonin 0.08 ng/mL (0-0.5) 06/18/25 03:10 No radiology studies performed this visit Discharge Plan Discharge Patient Disposition: Home Clinical Impression: Nodule of left lung, Left renal stone Condition: Stable Prescriptions: New promethazine 25 mg suppository 25 mg NM Q6H PRN (Reason: nausea and vomiting) Qty: 12 0RF No Action Flomax 0.4 mg capsule 0.4 mg PO DAILY Qty: 90 3RF promethazine 25 mg tablet 25 mg PO Q6H PRN (Reason: nausea and vomiting) Qty: 20 0RF Flomax 0.4 mg capsule 0.4 mg PO BID Qty: 60 0RF Percocet 10-325 mg tablet 1 tab PO Q4H PRN (Reason: pain) Qty: 30 0RF promethazine 25 mg tablet 25 mg PO Q6H PRN (Reason: nausea and vomiting) Qty: 20 0RF oxycodone-acetaminophen [Percocet] 5-325 mg tablet 1 tab PO Q8H PRN (Reason: pain) Qty: 20 0RF ketorolac 10 mg tablet 10 mg PO Q8H PRN (Reason: pain) Qty: 20 0RF ondansetron 4 mg tablet,disintegrating 4 mg PO Q8H PRN (Reason: nausea and vomiting) Qty: 20 0RF Discharge Orders: Discharge ED (Routine); Ordered 06/18/25 Ordered By: Debbie Ochoa Referrals: Isac Ornelas DO [Primary Care Provider, [facility]] Patient Instructions: Opioid Safety, Pain Management, Patient Portal & [place] Instructions, Kidney Stones Activity Restrictions/Additional Instructions: Take Toradol 10 mg in addition to 500 mg of Tylenol every 6 hours for pain. You may take an oxycodone/acetaminophen for severe breakthrough pain only. Take Zofran for nausea and vomiting. If you still feel nauseated, you may take a rectal Phenergan. Continue to monitor your condition closely at home. If your condition worsens or additional concerns arise, please return to the emergency department for reassessment. Please follow-up with urology within 1 week. Please note that on yesterday's imaging, there was an incidental nodule found that will need follow up with a CT scan. Talk to your primary care doctor about follow up CT imaging for incidental lung nodule. 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
[2025-06-18] MEDS: HYDROmorphone 0.5 MG/0.5 ML INJ 1 MG IVP (03:54)
[2025-06-18] MEDS: ondansetron 2 mg/ML SDV 2 mL 8 MG IVP (03:54)
[2025-06-18 03:58] LABS: Hematocrit 39.3 % (37-53); Hemoglobin 13.90 g/dL (11.27-16.99); Mean Corpuscular HGB Conc 35.4 g/dL (30-55); Mean Corpuscular Hemoglobin 31.3 pg (27-33); Mean Corpuscular Volume 88.5 fl (82-101); Nucleated Red Blood Cells % 0 %; Platelet Count 162 10^3/cmm (157-399); Red Blood Count 4.44 10^6/uL (3.85-5.65); White Blood Count 9.01 10^3/uL (3.29-11.43)
[2025-06-18 04:14] LABS: Alanine Aminotransferase 15 U/L (0-41); Albumin Level 4.3 g/dL (3.5-5.2); Alkaline Phosphatase 79 U/L (40-130); Anion Gap 20.2 (5-19); Aspartate Amino Transferase 19 U/L (0-40); Blood Urea Nitrogen 18 mg/dL (8-23); Calcium 9.0 mg/dL (8.5-10.5); Carbon Dioxide 20 mmol/L (22-29); Chloride 104 mmol/L (98-107); Creatinine Clr Calc Pharmacy 92.8865; Globulin 2.3 g/dL (1.3-4.6); Glucose 142 mg/dL (65-115); Osmolality Calculated 294 mOsm/kg (285-295); Potassium 4.2 mmol/L (3.5-5.1); Sodium 140 mmol/L (136-145); Total Protein 6.6 g/dL (6.6-8.7)
[2025-06-18 04:21] LABS: Procalcitonin 0.08 ng/mL (0-0.5)
[2025-06-18 06:17] VITALS: BP 165/89; PULSE 81; RESP 16; O2SAT 96
[2025-06-18 06:25] LABS: Glucose Urine UA Negative (Normal); Nitrate Urine Negative (Negative); Specific Gravity, Urine 1.027 (1.005-1.030)
[2025-06-18 06:29] VITALS: BP 159/98; PULSE 71; RESP 18; O2SAT 94
[2025-06-18] MEDS: HYDROmorphone 0.5 MG/0.5 ML INJ IVP (06:29)
[2025-06-18 06:49] LABS: UA Manual Slide Review YES; UA Slide Review UA Slide Review Perf
[2025-06-18 06:50] LABS: Add Urine Microscopic? YES
== END 2025-06-18 07:18 | disposition home or self-care (01) ==
PROVIDERS: Emergency Provider Emergency Medicine; PCP Electrodiagnostic Medicine
DX: N20.0 Calculus of kidney (principal); Z87.442 Personal history of urinary calculi; R91.1 Solitary pulmonary nodule
CPT/HCPCS: 36415; 80053; 81001; 84145; 85025; 87086; 96361; 96374; 96375; 96376; 99284; J1171; J2405; J7120

== ENCOUNTER 2025-07-11 07:23 | Outpatient (CLI) | payer SELFPAY ==
--- NOTE | 2025-07-11 07:29 | XR_ITS ---
WS: [id number] Exam: XR KUB [id number] Date/Time of Exam: 07/11/2025 7:31 AM Reason For Exam: HX OF NEPHROLITHIASIS Comparison 07/06/2024. No bowel obstruction or free air. No sign of organ enlargement. No abnormal calcifications are visualized. Degenerative changes and slight levoscoliosis of the lumbar spine. XR/XR KUB [id number] IMPRESSION: 1. No acute process.
== END 2025-07-11 07:24 | disposition home or self-care (01) ==
PROVIDERS: PCP Electrodiagnostic Medicine; Visit Provider Urology
DX: Z87.442 Personal history of urinary calculi (principal); M51.369 Other intervertebral disc degeneration, lumbar region without mention of lumbar back pain or lower extremity pain; M41.86 Other forms of scoliosis, lumbar region
CPT/HCPCS: 74018